=== PATIENT | female | born 1945 | race Caucasian/White ===

== ENCOUNTER 2023-10-03 19:07 | Emergency (ER) | payer MEDICARE, SELFPAY ==
--- NOTE | 2023-10-03 19:08 | ED_ITS ---
<Statement entered by Jamie Danielson MD - 10/03/23 23:08> I was consulted by the RENAN, and we discussed the complexity of the problems being addressed. I approved the treatment and management plan for this patient's care in the emergency department, thus performing a substantive portion of the medical decision making. Patient has previous CVA with baseline residual with no acute neurologic deficits in terms of speech, motor, sensory. She does have slight ptosis and miosis on the right, based on history and physical exam she has not had an acute stroke, Edita syndrome is a consideration and it runs in her family so she will benefit from workup from an outpatient evaluation. Jamie Danielson MD Discharge Plan Disposition Patient Disposition: Home, Self-Care Condition: Good Chief Complaint: Eye Problems Referrals Follow up/Referrals: Mohit Fontanez APRN [Primary Care Provider] - See instructions Activity Restrictions/Add. Instructions Additional Instructions/Restrictions: Please call and schedule either a follow-up appointment or MRI from your PCP in the morning for continued evaluation for miosis and possible Edita syndrome. Please follow-up with ophthalmology for any worsening symptoms or return to ER as needed for your bacterial conjunctivitis. Clinical Impressions Clinical Impression: Bacterial conjunctivitis, Miosis Instructions Patient Instructions: DI for Conjunctivitis Print Language Print Language: Grenadian Discharge ED Provider: Jamie Danielson General Adult HPI <TOMAS Otto - Last Filed: 10/03/23 22:54> General Chief complaint: Eye Problems Stated complaint: right eye pain and burning Time Seen by Provider: 10/03/23 19:08 History of Present Illness HPI narrative: Patient presents for 3 days of right eye pain and burning. Patient has noticed that her right eye has become more painful and has been burning for the last 3 days. Today she states it is causing blurry vision. She denies any headaches fever chills hemoptysis hematochezia melena nausea vomiting diarrhea. Patient does have a history of previous right-sided stroke when she was age 37 however has had no long-term lifelong deficits. Related Data Allergies Allergy/AdvReac Type Severity Reaction Status Date / Time diazepam [From Valium] Allergy Verified 10/03/23 20:02 Sulfa (Sulfonamide Allergy Verified 10/03/23 20:02 Antibiotics) PFS <TOMAS Otto - Last Filed: 10/03/23 22:54> [facility] Disclaimer: The information contained in this section may have been updated after the patient was seen, as this information can be updated by other users. Social History Smoking Status: Unknown if ever smoked alcohol intake: never current occupational status: retired Travel in the last 8 weeks: None <TOMAS Otto - Last Filed: 10/03/23 22:54> ROS Obtained: Yes Systems reviewed as appropriate & no additional complaints except as documented Physical Exam <TOMAS Otto - Last Filed: 10/03/23 22:54> General General appearance: alert and in no apparent distress Eye Eye exam: Present conjunctival redness, discharge and miosis (Right); Absent periorbital swelling or periorbital tenderness Expanded Eye Exam Pupils: Left: reactive, Right: non reactive/fixed and size (3 mm) and Bilateral: regular, round ENT ENT exam: Present normal exam and normal oropharynx Neck Neck exam: Present normal inspection and full ROM Respiratory Respiratory exam: Present normal lung sounds bilaterally Cardiovascular Cardiovascular exam: Present regular rate and normal rhythm Abdominal Exam Abdominal exam: Absent normal bowel sounds Neurological Exam Neurological exam: Present alert, oriented X3, CN II-XII intact and normal gait; Absent motor sensory deficit Medical Decision Making <TOMAS Otto - Last Filed: 10/03/23 22:54> Medical Records Medical records reviewed: Yes I reviewed the patient's medical records. [place] Inquiry Pt receiving controlled substance: No Vital Signs: 10/03/23 19:17 Temperature 98.2 F Temperature Source Oral Pulse Rate [Right Brachial] 85 Respiratory Rate 15 Blood Pressure [Right Arm] 158/77 H Blood Pressure Mean [Right Arm] 104 Blood Pressure Source [Right Arm] Automatic Cuff Blood Pressure Position [Right Arm] Sitting 02 Sat by Pulse Oximetry 100 Oxygen Delivery Method Room Air Lab Data Lab results reviewed: Yes I reviewed the patient's lab results. Lab Results 10/03/23 21:20: WBC 5.9, RBC 4.61, Hgb 13.5, Hct 43.0, MCV 93.3, MCH 29.3, MCHC 31.4 L, RDW 14.7, Plt Count 159, MPV 10.1, Neut % (Auto) 66.8, Lymph % (Auto) 24.9, [place] % (Auto) 5.5, Eos % (Auto) 1.4, Baso % (Auto) 1.3, Neut # (Auto) 4.0, Lymph # (Auto) 1.5, [place] # (Auto) 0.3, Eos # (Auto) 0.1, Baso # (Auto) 0.1, PT 10.9, INR 0.97, APTT 27.4, Sodium 140, Potassium 4.3, Chloride 107, Carbon Dioxide 29, Anion Gap 8.3, BUN 15, Creatinine 0.80, Estimated Creat Clear 64, Estimated GFR 70, Est GFR ( Amer) 84, Glucose 121 H, Calcium 9.1, Total Bilirubin 0.5, AST 39 H, ALT 26, Alkaline Phosphatase 108, Total Protein 8.8 H, Albumin 4.5, Globulin 4.3 H, Albumin/Globulin Ratio 1.0 L, Triglycerides 151 H, Cholesterol 181, LDL Cholesterol Direct 83.80 L, VLDL Cholesterol 30, HDL Cholesterol 46, Cholesterol/HDL Ratio 3.9 H 10/03/23 21:20 10/03/23 21:20 Orders (Tests/Meds): ED MEDICATIONS Generic Name Dose Route Start Last Admin Trade Name Freq PRN Reason Stop Dose Admin Sodium Chloride 10 ml 10/03/23 21:59 10/03/23 22:01 Sodium Chloride 0.9% 10ml Syr (Rad Only) IV 11/02/23 21:58 10 ml NEEDED PRN Administration Maintain IV Site Discontinued Medications Generic Name Dose Route Start Last Admin Trade Name Freq PRN Reason Stop Dose Admin Iopamidol 80 ml 10/03/23 21:59 10/03/23 22:00 Iopamidol-370 (76%);100ml Bottle IV 10/03/23 22:00 80 ml ONCE ONE Administration Sodium Chloride 50 ml 10/03/23 21:59 10/03/23 22:00 0.9 % Sodium Chloride 50 Ml Vial IV 10/03/23 22:00 50 ml ONCE ONE Administration ORDERS Category Date Time Status CT angio head Stat Cat Scan 10/03/23 19:[address] angio neck Stat Cat Scan 10/03/23 19:[address] head/brain wo con Stat Cat Scan 10/03/23 19:48 Completed Activated Partial Thrombo Time Stat Lab 10/03/23 21:20 Completed CBC w/Auto Diff [Complete Blood Count Auto Diff] Stat Lab 10/03/23 21:20 Completed CMP [Comprehensive Metabolic Panel] Stat Lab 10/03/23 21:20 Completed INR [Prothrombin Time INR] Stat Lab 10/03/23 21:20 Completed Lipid Panel Stat Lab 10/03/23 21:20 Completed ECG Request Stat Y 10/03/23 19:48 Ordered Medical Decision Narrative: In summary patient is a 78-year-old female who presents to the emergency department for evaluation of right eye problem. Patient is hemodynamically stable upon arrival, afebrile. Physical exam is remarkable for bulbar and scleral conjunctival erythema and injection as well as slightly purulent discharge. Exam with fluorescein stain and black light reveals no uptake of fluorescein patient has no exophthalmos has no headache no painful extraocular movement testing however I do notice that patient's right pupil is contracted in comparison to the right. Further examination shows that it does not react visibly at all. Patient's pressure shows 14 her visual acuity is 20/50 in the left 20/70 in the right 20/50 in both with corrected vision. Differential diagnosis includes Edita syndrome versus simple conjunctivitis versus residual unequal pupils from previous stroke etc. Initial workup will be conducted with hematologic labs CTA of the head neck and CT of the head without contrast. Initial interventions include crystalloid bolus. Initial workup reviewed by me shows her hematologic labs are nonactionable and my informal interpretation of her CT imaging of her head and neck shows no acute processes.. 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 Patient then related that her mother had 16 brothers and sisters 5 of which to have or had Edita syndrome but not her mother.. Given this patient is referred back to her PCP for further workup of potential Edita syndrome including MRI. Patient was also suggested to follow-up with ophthalmology for recheck of her eye at her earliest convenience. Patient given strict return precautions. Patient is appropriate for discharge with prescription erythromycin ointment given here in the emergency department. <Jamie Danielson MD - Last Filed: 10/03/23 20:17> Vital Signs: 10/03/23 19:17 Temperature 98.2 F Temperature Source Oral Pulse Rate [Right Brachial] 85 Respiratory Rate 15 Blood Pressure [Right Arm] 158/77 H Blood Pressure Mean [Right Arm] 104 Blood Pressure Source [Right Arm] Automatic Cuff Blood Pressure Position [Right Arm] Sitting 02 Sat by Pulse Oximetry 100 Oxygen Delivery Method Room Air Lab Data Lab Results 10/03/23 21:20: WBC 5.9, RBC 4.61, Hgb 13.5, Hct 43.0, MCV 93.3, MCH 29.3, MCHC 31.4 L, RDW 14.7, Plt Count 159, MPV 10.1, Neut % (Auto) 66.8, Lymph % (Auto) 24.9, [place] % (Auto) 5.5, Eos % (Auto) 1.4, Baso % (Auto) 1.3, Neut # (Auto) 4.0, Lymph # (Auto) 1.5, [place] # (Auto) 0.3, Eos # (Auto) 0.1, Baso # (Auto) 0.1, PT 10.9, INR 0.97, APTT 27.4, Sodium 140, Potassium 4.3, Chloride 107, Carbon Dioxide 29, Anion Gap 8.3, BUN 15, Creatinine 0.80, Estimated Creat Clear 64, Estimated GFR 70, Est GFR ( Amer) 84, Glucose 121 H, Calcium 9.1, Total Bilirubin 0.5, AST 39 H, ALT 26, Alkaline Phosphatase 108, Total Protein 8.8 H, Albumin 4.5, Globulin 4.3 H, Albumin/Globulin Ratio 1.0 L, Triglycerides 151 H, Cholesterol 181, LDL Cholesterol Direct 83.80 L, VLDL Cholesterol 30, HDL Cholesterol 46, Cholesterol/HDL Ratio 3.9 H Orders (Tests/Meds): ED MEDICATIONS Generic Name Dose Route Start Last Admin Trade Name Freq PRN Reason Stop Dose Admin Sodium Chloride 10 ml 10/03/23 21:59 10/03/23 22:01 Sodium Chloride 0.9% 10ml Syr (Rad Only) IV 11/02/23 21:58 10 ml NEEDED PRN Administration Maintain IV Site Discontinued Medications Generic Name Dose Route Start Last Admin Trade Name Freq PRN Reason Stop Dose Admin Iopamidol 80 ml 10/03/23 21:59 10/03/23 22:00 Iopamidol-370 (76%);100ml Bottle IV 10/03/23 22:00 80 ml ONCE ONE Administration Sodium Chloride 50 ml 10/03/23 21:59 10/03/23 22:00 0.9 % Sodium Chloride 50 Ml Vial IV 10/03/23 22:00 50 ml ONCE ONE Administration ORDERS Category Date Time Status CT angio head Stat Cat Scan 10/03/23 19:[address] angio neck Stat Cat Scan 10/03/23 19:[address] head/brain wo con Stat Cat Scan 10/03/23 19:48 Completed Activated Partial Thrombo Time Stat Lab 10/03/23 21:20 Completed CBC w/Auto Diff [Complete Blood Count Auto Diff] Stat Lab 10/03/23 21:20 Completed CMP [Comprehensive Metabolic Panel] Stat Lab 10/03/23 21:20 Completed INR [Prothrombin Time INR] Stat Lab 10/03/23 21:20 Completed Lipid Panel Stat Lab 10/03/23 21:20 Completed ECG Request Stat Y 10/03/23 19:48 Ordered ECG Data Tracing #1: Independently interpreted by me rate is 104, rhythm is regular, axis is normal, sinus tachycardia, no ST elevation in anatomical contiguous leads, QTc 4 6 Critical Care <TOMAS Otto - Last Filed: 10/03/23 22:54> Critical Care Time Critical Care Time: No
[2023-10-03 19:17] VITALS: BP 158/77; PULSE 85; RESP 15; TEMP 36.8; O2SAT 100; BMI 33.0
--- NOTE | 2023-10-03 19:32 | PC.NURSE ---
Visual acuity completed, corrected with glasses. Left 20/50 Right 20/70 Both 20/50 Provider notified.
--- NOTE | 2023-10-03 19:36 | PC.NURSE ---
spoke with [facility] paging for ophthalmology
--- NOTE | 2023-10-03 19:40 | PC.NURSE ---
speaking with [facility] at this time.
--- NOTE | 2023-10-03 19:48 | CT_ITS ---
PROCEDURE INFORMATION: Exam: CT Head Without Contrast Exam date and time: 10/03/2023 9:42 PM Age: 78 years old Clinical indication: Weakness, facial; Additional info: Possible stroke TECHNIQUE: Imaging protocol: Computed tomography of the head without contrast. Radiation optimization: All CT scans at this facility use at least one of these dose optimization techniques: automated exposure control; mA and/or kV adjustment per patient size (includes targeted exams where dose is matched to clinical indication); or iterative reconstruction. COMPARISON: CT ANGIO HEAD 10/03/2023 9:42 PM FINDINGS: Brain: Periventricular and subcortical small vessel ischemic changes appear chronic. Mild atrophy associated. No acute hemorrhage, mass effect, midline shift, or extra-axial fluid collection. Cerebral ventricles: No ventriculomegaly. Paranasal sinuses: Visualized sinuses are unremarkable. No fluid levels. Mastoid air cells: Visualized mastoid air cells are well aerated. Bones: Unremarkable. No acute fracture. Soft tissues: Unremarkable. IMPRESSION: No acute intracranial abnormality.
--- NOTE | 2023-10-03 19:48 | CT_ITS ---
PROCEDURE INFORMATION: Exam: CTA Head With Contrast, Arteriography Exam date and time: 10/03/2023 9:42 PM Age: 78 years old Clinical indication: Weakness; Additional info: Possible stroke TECHNIQUE: Imaging protocol: Computed tomographic angiography of the head with contrast. Exam focused on the arteries. 3D rendering (Not supervised by radiologist): MIP and/or 3D reconstructed images were created by the technologist. Radiation optimization: All CT scans at this facility use at least one of these dose optimization techniques: automated exposure control; mA and/or kV adjustment per patient size (includes targeted exams where dose is matched to clinical indication); or iterative reconstruction. Contrast material: ISOUVE 370; Contrast volume: 80 ml; Contrast route: INTRAVENOUS (IV); COMPARISON: CT HEAD/BRAIN WO CON 10/03/2023 9:42 PM FINDINGS: ANTERIOR CIRCULATION: Right internal carotid artery: Intracranial segment is patent with no significant stenosis. No aneurysm. Right middle cerebral artery: No occlusion or significant stenosis. No aneurysm. Right anterior cerebral artery: No occlusion or significant stenosis. No aneurysm. Left internal carotid artery: Intracranial segment is patent with no significant stenosis. No aneurysm. Left middle cerebral artery: No occlusion or significant stenosis. No aneurysm. Left anterior cerebral artery: No occlusion or significant stenosis. No aneurysm. POSTERIOR CIRCULATION: Right vertebral artery: No occlusion or significant stenosis. No aneurysm. Left vertebral artery: No occlusion or significant stenosis. No aneurysm. Basilar artery: No occlusion or significant stenosis. No aneurysm. Right posterior cerebral artery: No occlusion or significant stenosis. No aneurysm. Left posterior cerebral artery: No occlusion or significant stenosis. No aneurysm. Brain: No definite mass, mass effect, or midline shift. Cerebral ventricles: No ventriculomegaly. Bones/joints: Unremarkable. No acute fracture. Soft tissues: Unremarkable. IMPRESSION: No large vessel stenosis or occlusion.
--- NOTE | 2023-10-03 19:48 | CT_ITS ---
PROCEDURE INFORMATION: Exam: CTA Neck With Contrast Exam date and time: 10/03/2023 9:42 PM Age: 78 years old Clinical indication: Weakness; Additional info: Possible stroke TECHNIQUE: Imaging protocol: Computed tomographic angiography of the neck with contrast. Exam focused on the cervical segments of the vasculature. 3D rendering (Not supervised by radiologist): MIP and/or 3D reconstructed images were created by the technologist. Radiation optimization: All CT scans at this facility use at least one of these dose optimization techniques: automated exposure control; mA and/or kV adjustment per patient size (includes targeted exams where dose is matched to clinical indication); or iterative reconstruction. Contrast material: ISOUVE 370; Contrast volume: 80 ml; Contrast route: INTRAVENOUS (IV); COMPARISON: CT ANGIO HEAD 10/03/2023 9:42 PM FINDINGS: Right common carotid artery: No stenosis. No dissection or occlusion. Right internal carotid artery: No stenosis of the extracranial segment. No dissection or occlusion. Right external carotid artery: No occlusion or stenosis of the origin. Left common carotid artery: No stenosis. No dissection or occlusion. Left internal carotid artery: No stenosis of the extracranial segment. No dissection or occlusion. Left external carotid artery: No occlusion or stenosis of the origin. Right vertebral artery: No stenosis. No dissection or occlusion. Left vertebral artery: No stenosis. No dissection or occlusion. Soft tissues: Normal. No significant soft tissue swelling. Bones/joints: No acute fracture. IMPRESSION: No stenosis or occlusion. REFERENCES: NASCET CRITERIA. The degree of stenosis in the cervical segment of the internal carotid artery is based on NASCET criteria. Normal is no stenosis. Mild is less than 50% stenosis. Moderate is 50-69% stenosis. Severe is 70% to 99% stenosis. Total occlusion is no detectable patent lumen.
--- NOTE | 2023-10-03 20:00 | ECG_ITS ---
APPROVED REPORT Exam: Resting ECG HR:104 bpm ECG Measurements Heart Rate 104 AXES SC 191 P 80 QRSd 92 QRS 19 QT 346 T 70 QTc 406 Conclusion SINUS TACHYCARDIA LOW QRS VOLTAGE IN PRECORDIAL LEADS [QRS DEFLECTION < 1.0 mV IN CHEST LEADS] ABNORMAL RHYTHM ECG Electronically signed by : BURTON WELLINGTON, 10/03/2023 23:26:54
--- NOTE | 2023-10-03 21:09 | PC.NURSE ---
attempted to p[lace iv twice with no success ER charge nurse made aware
[2023-10-03 21:28] LABS: Basophils # 0.1 K/mm3 (0-0.2); Basophils % 1.3 % (0.1-2.0); Eosinophils # 0.1 K/mm3 (0.0-0.4); Eosinophils % 1.4 % (0.1-12.0); Hemoglobin 13.5 g/dL (12.2-16.2); Lymphocytes # 1.5 K/mm3 (0.7-4.5); Lymphocytes % 24.9 % (10-50); Mean Corpuscular HGB Conc 31.4 g/dL (31.8-35.4); Mean Corpuscular Hemoglobin 29.3 pg (27.0-31.2); Mean Corpuscular Volume 93.3 fl (81-99); Mean Platelet Volume 10.1 fl (7.4-10.4); Monocytes # 0.3 K/mm3 (0.1-1.0); Monocytes % 5.5 % (1.7-9.3); Neutrophils % 66.8 % (37.0-80.0); Platelet Count 159 K/mm3 (142-424); Red Blood Count 4.61 M/mm3 (4.20-5.40); Red Cell Distribution Width 14.7 % (11.5-17.5); White Blood Count 5.9 K/mm3 (4.8-10.8)
[2023-10-03 21:32] LABS: Albumin Level 4.5 g/dl (3.5-5.0); Chloride 107 mmol/L (98-107); Sodium 140 mmol/L (136-145)
[2023-10-03 21:33] LABS: Potassium 4.3 mmoL/L (3.5-5.1)
[2023-10-03 21:35] LABS: Alanine Aminotransferase 26 U/L (12-78); Anion Gap 8.3 mEq/L (5-15); Aspartate Amino Transferase 39 U/L (14-36); Blood Urea Nitrogen 15 mg/dl (7-17); Carbon Dioxide 29 mmol/L (22.0-30.0); Creatinine Clearance Estimated 64 mL/min (50-200); Estimated Glomerular Filt Rate 70 ml/min (>60); GFR (African American) 84 ML/MIN (>60); Globulin 4.3 g/dL (1.3-3.2); Total Protein,Serum 8.8 g/dl (6.3-8.2)
[2023-10-03 21:36] LABS: Alkaline Phosphatase 108 U/L (38-126); Bilirubin,Total 0.5 mg/dl (0.2-1.3); Calcium 9.1 mg/dl (8.4-10.2); Chol/HDL Ratio 3.9 (1-3.5); Cholesterol 181 mg/dl (140-200); Glucose 121 mg/dl (74-100); HDL Cholesterol 46 mg/dl (40-60); Triglycerides 151 mg/dl (30-150); VLDL Cholesterol 30 mg/dL (0-40)
[2023-10-03 21:38] LABS: Activated Partial Thrombo Time 27.4 seconds (22.8-30.6); INR 0.97 (0.9-1.1); Prothrombin Time 10.9 seconds (10.1-12.5)
[2023-10-03] MEDS: IOPAMIDOL-370 (76%);100ML BOTTLE 80 ML IV (22:00)
[2023-10-03] MEDS: 0.9 % SODIUM CHLORIDE 50 ML VIAL IV (22:00)
[2023-10-03] MEDS: SODIUM CHLORIDE 0.9% 10ML SYR (RAD ONLY) 10 ML IV (22:01)
[2023-10-03 23:07] VITALS: BP 148/79; PULSE 80; RESP 20; TEMP 36.8; O2SAT 98
== END 2023-10-03 23:09 | disposition home or self-care (01) ==
PROVIDERS: Physician Assistant; Emergency Provider Emergency Medicine; PCP Nurse Practitioner Family
DX: H10.33 Unspecified acute conjunctivitis, bilateral (principal); H53.8 Other visual disturbances; H57.03 Miosis; R00.0 Tachycardia, unspecified
CPT/HCPCS: 70450; 70496; 70498; 80053; 80061; 85025; 85610; 85730; 93005; 99285; Q9967

== ENCOUNTER 2024-06-16 22:27 | Emergency (ER) | payer MEDICARE, OTHER, SELFPAY ==
[2024-06-16 22:47] VITALS: BP 159/84; PULSE 95; RESP 16; TEMP 36.8; O2SAT 94; BMI 37.5
--- NOTE | 2024-06-16 22:49 | ED_ITS ---
Discharge Plan Disposition Patient Disposition: Home, Self-Care Condition: Good Prescriptions Prescriptions: New cephalexin 500 mg capsule 500 mg PO QID 7 Days Qty: 28 0RF Referrals Follow up/Referrals: Mohit Fontanez APRN [Primary Care Provider] - See instructions Activity Restrictions/Add. Instructions Additional Instructions/Restrictions: Please take antibiotics as prescribed for treatment of possible cellulitis. Please follow-up with your primary care provider. Please return to the emergency department if you develop any new or worsening symptoms or become concerned for your health. Clinical Impressions Clinical Impression: Cellulitis, Leg pain, right Print Language Print Language: Azeri Discharge ED Provider: Leonardo Crawley General Adult HPI <Sudha Leung DO - Last Filed: 06/16/24 23:28> General Chief complaint: Chest Pain Stated complaint: Red streaks from right foot with warm knot R leg Time Seen by Provider: 06/16/24 22:44 History of Present Illness HPI narrative: This patient is a 78-year-old female with history of diabetes, CAD, prior CVA on Plavix presented to the emergency department for evaluation with concern for redness, pain, and streaking on her right lateral leg. She denies any known trauma or injuries. No fevers. She does note that she has had some chest heaviness and shortness of breath over the last week. Related Data Previous Rx's ?Medication ?Instructions ?Recorded cephalexin 500 mg capsule 500 mg PO QID 7 days #28 caps 06/17/24 Allergies Allergy/AdvReac Type Severity Reaction Status Date / Time diazepam (From Valium) Allergy Verified 10/03/23 20:02 Sulfa (Sulfonamide Allergy Verified 10/03/23 20:02 Antibiotics) [facility] <Sudha Leung DO - Last Filed: 06/16/24 23:28> [facility] Disclaimer: The information contained in this section may have been updated after the patient was seen, as this information can be updated by other users. Social History Smoking Status: Never smoker alcohol intake: never current occupational status: retired Travel in the last 8 weeks: None Have you lived/traveled outside [place] in past 30 days?: No Contact w/someone who lives/traveled outside [place] past 30 days?: No Exposure to someone with infectious disease in past 14 days?: No Do you have a fever (greater than 100.4 F or 38 C)?: No Have you tested positive for COVID-19: No Exposed to someone with COVID-19 in past 14 days?: No Do you have a sore throat?: No Do you have a cough?: No Do you have any weakness?: No Do you have any diarrhea?: No Are you experiencing any unusual bleeding?: No Do you have any muscle aches/pain?: No Do you have any abdominal pain?: No Are you experiencing loss of taste or smell?: No <Sudha Leung DO - Last Filed: 06/16/24 23:28> ROS Obtained: Yes All systems reviewed & no additional complaints except as documented Physical Exam <Sudha Leung DO - Last Filed: 06/16/24 23:28> General General appearance: alert and in no apparent distress Head Head exam: atraumatic and normocephalic Eye Eye exam: Present normal appearance, PERRL and EOMI ENT ENT exam: Present normal exam, normal oropharynx, mucous membranes moist and normal external ear exam Neck Neck exam: Present normal inspection, full ROM and trachea midline; Absent tenderness Chest Chest inspection: Present normal inspection and symmetric chest wall rise; Absent tenderness Respiratory Respiratory exam: Present normal lung sounds bilaterally; Absent respiratory distress, wheezes, stridor or accessory muscle use Cardiovascular Cardiovascular exam: Present regular rate and normal rhythm Abdominal Exam Abdominal exam: Present soft; Absent distention, tenderness or guarding Extremities Exam Extremities exam: Present full ROM, tenderness, normal capillary refill, edema and other (Tenderness to palpation, redness, and swelling of the right lateral lower leg with redness extending into the foot. Firm palpable area of induration on the lateral aspect of the right lower leg. No open wounds. Neurovascularly intact distally.) Back Exam Back exam: Present normal inspection and full ROM; Absent tenderness Neurological Exam Neurological exam: Present alert, oriented X3, CN II-XII intact and normal gait; Absent motor sensory deficit Psychiatric Psychiatric exam: Present normal affect and normal mood Skin Skin exam: Present warm and dry Medical Decision Making <uSdha Leung DO - Last Filed: 06/16/24 23:28> Medical Records Medical records reviewed: Yes I reviewed the patient's medical records. Screening: Per USPSTF and CDC recommendations, given the prevalence of disease in our region, it is our hospital?s policy to screen for HIV and viral Hepatitis for all patients aged 18 and over and those with ongoing risk factors. [place] Inquiry Pt receiving controlled substance: No Vital Signs: 06/16/24 22:47 06/16/24 23:00 06/16/24 23:30 Temperature 98.2 F Temperature Source Oral Pulse Rate 98 H 88 Pulse Rate [Left] 95 H Respiratory Rate 16 Blood Pressure 106/54 L 101/62 L Blood Pressure [Right Arm] 159/84 H Blood Pressure Mean [Right Arm] 109 Blood Pressure Source Blood Pressure Position 02 Sat by Pulse Oximetry 94 L 95 96 Oxygen Delivery Method Room Air 06/17/24 00:18 Temperature 97.9 F Temperature Source Oral Pulse Rate 74 Pulse Rate [Left] Respiratory Rate 16 Blood Pressure 109/72 L Blood Pressure [Right Arm] Blood Pressure Mean [Right Arm] Blood Pressure Source Automatic Cuff Blood Pressure Position Supine 02 Sat by Pulse Oximetry Oxygen Delivery Method Room Air Lab Data Lab results reviewed: Yes I reviewed the patient's lab results. Lab Results 06/16/24 22:43: WBC 6.3, RBC 4.50, Hgb 13.2, Hct 39.9, MCV 88.7, MCH 29.3, MCHC 33.1, RDW 14.0, Plt Count 154, MPV 11.5 H, Neut % (Auto) 56.9, Lymph % (Auto) 32.0, [place] % (Auto) 8.3, Eos % (Auto) 1.4, Baso % (Auto) 1.1, Neut # (Auto) 3.6, Lymph # (Auto) 2.0, [place] # (Auto) 0.5, Eos # (Auto) 0.1, Baso # (Auto) 0.1, ESR 29, D-Dimer 0.67 H, Sodium 142, Potassium 4.3, Chloride 109 H, Carbon Dioxide 26, Anion Gap 11.3, BUN 14, Creatinine 0.80, Estimated Creat Clear 73, Estimated GFR 70, Est GFR ( Amer) 84, Glucose 83, Lactate 1.2, Calcium 9.3, Total Bilirubin 0.4, AST 33, ALT 20, Alkaline Phosphatase 91, Troponin I < 0.01, C- Reactive Protein 1.0, NT-Pro-B Natriuret Pep 157, Total Protein 7.9, Albumin 4.2, Globulin 3.7 H, Albumin/Globulin Ratio 1.1, HCV Ab CECILIA w/Rflx PCR Qn Negative, HIV Ag/Ab Combo Qual Negative 06/16/24 22:43 06/16/24 22:43 Orders (Tests/Meds): ED MEDICATIONS Discontinued Medications Generic Name Dose Route Start Last Admin Trade Name Freq PRN Reason Stop Dose Admin Cephalexin HCl 500 mg 06/17/24 00:10 06/17/24 00:12 Cephalexin 500mg Capsule PO 06/17/24 00:11 500 mg ONCE ONE Administration ORDERS Category Date Time Status CXR --portable [XR chest portable] Stat Exams 06/16/24 22:50 Completed POCUS Point of Care (ER Only) Stat Exams 06/16/24 22:49 Completed BNP [NT Pro Brain Natriuretic Pep.] Stat Lab 06/16/24 22:43 Completed CRP [C-Reactive Protein] Stat Lab 06/16/24 22:43 Completed Complete Blood Count Auto Diff Stat Lab 06/16/24 22:43 Completed Comprehensive Metabolic Panel Stat Lab 06/16/24 22:43 Completed D-Dimer Stat Lab 06/16/24 22:43 Completed ESR [Erythrocyte Sedimentation Rate] Stat Lab 06/16/24 22:43 Completed HIV Combo Stat Lab 06/16/24 22:43 Completed Hepatitis C Ab Qual. W/ RFX Stat Lab 06/16/24 22:43 Completed Lactic Acid Stat Lab 06/16/24 22:43 Completed Trop I [Troponin I] Stat Lab 06/16/24 22:43 Completed Troponin I Q3H Lab 06/17/24 02:00 Ordered Troponin I Q3H Lab 06/17/24 05:00 Ordered ECG Data Tracing #1: I reviewed this ECG and interpreted as documented below: Normal sinus rhythm with a ventricular rate of [address] changes concerning for ischemia. Normal intervals ECG initial impression date: 06/16/24 ECG initial impression time: 23:01 Medical Decision Narrative: In summary, this patient is a 78-year-old female presenting to the Emergency Department for evaluation of redness, warmth, tenderness palpation of the right lower leg. Differential diagnoses considered include but are not limited to cellulitis, DVT, abscess, musculoskeletal strain/sprain. Ruling out the most morbid conditions drove assessment. It should be noted patient's history includes diabetes, extensive cardiovascular history which may or may not be at goal therapy. This complicates all aspects of care by increasing patient's risk for morbidity. On exam, the patient is sitting upright in no acute distress. She is nontoxic- appearing with reassuring vital signs on cardiac telemetry. She is afebrile. She has no hypoxia or increased work of breathing. Cardiopulmonary exam is reassuring. She does have redness, warmth, tenderness to palpation of the right lower leg with a palpable area of induration on the right side of the lower leg. No known trauma. Workup included CBC, CMP, ESR, CRP, lactic acid, D-dimer, bedside ultrasound. Bedside ultrasound demonstrates some cobblestoning of the soft tissues concerning for cellulitis/inflammatory process, but I do not see any large abscess or focal fluid collection. No gas. She also does not have blood clot on my interpretation of bedside imaging with a negative D-dimer per age-adjusted dimer, which affectively is 0.76. Initial labs are reassuring with reassuring CBC, reassuring chemistry, however troponin and chest x-ray pending. EKG obtained is reassuring. Patient care signed out to the oncoming provider, Dr. Crawley, pending remaining cardiac workup <Leonardo Crawley MD - Last Filed: 06/17/24 00:33> Vital Signs: 06/16/24 22:47 06/16/24 23:00 06/16/24 23:30 Temperature 98.2 F Temperature Source Oral Pulse Rate 98 H 88 Pulse Rate [Left] 95 H Respiratory Rate 16 Blood Pressure 106/54 L 101/62 L Blood Pressure [Right Arm] 159/84 H Blood Pressure Mean [Right Arm] 109 Blood Pressure Source Blood Pressure Position 02 Sat by Pulse Oximetry 94 L 95 96 Oxygen Delivery Method Room Air 06/17/24 00:18 Temperature 97.9 F Temperature Source Oral Pulse Rate 74 Pulse Rate [Left] Respiratory Rate 16 Blood Pressure 109/72 L Blood Pressure [Right Arm] Blood Pressure Mean [Right Arm] Blood Pressure Source Automatic Cuff Blood Pressure Position Supine 02 Sat by Pulse Oximetry Oxygen Delivery Method Room Air Lab Data Lab Results 06/16/24 22:43: WBC 6.3, RBC 4.50, Hgb 13.2, Hct 39.9, MCV 88.7, MCH 29.3, MCHC 33.1, RDW 14.0, Plt Count 154, MPV 11.5 H, Neut % (Auto) 56.9, Lymph % (Auto) 32.0, [place] % (Auto) 8.3, Eos % (Auto) 1.4, Baso % (Auto) 1.1, Neut # (Auto) 3.6, Lymph # (Auto) 2.0, [place] # (Auto) 0.5, Eos # (Auto) 0.1, Baso # (Auto) 0.1, ESR 29, D-Dimer 0.67 H, Sodium 142, Potassium 4.3, Chloride 109 H, Carbon Dioxide 26, Anion Gap 11.3, BUN 14, Creatinine 0.80, Estimated Creat Clear 73, Estimated GFR 70, Est GFR ( Amer) 84, Glucose 83, Lactate 1.2, Calcium 9.3, Total Bilirubin 0.4, AST 33, ALT 20, Alkaline Phosphatase 91, Troponin I < 0.01, C- Reactive Protein 1.0, NT-Pro-B Natriuret Pep 157, Total Protein 7.9, Albumin 4.2, Globulin 3.7 H, Albumin/Globulin Ratio 1.1, HCV Ab CECILIA w/Rflx PCR Qn Negative, HIV Ag/Ab Combo Qual Negative Orders (Tests/Meds): ED MEDICATIONS Discontinued Medications Generic Name Dose Route Start Last Admin Trade Name Freq PRN Reason Stop Dose Admin Cephalexin HCl 500 mg 06/17/24 00:10 06/17/24 00:12 Cephalexin 500mg Capsule PO 06/17/24 00:11 500 mg ONCE ONE Administration ORDERS Category Date Time Status CXR --portable [XR chest portable] Stat Exams 06/16/24 22:50 Completed POCUS Point of Care (ER Only) Stat Exams 06/16/24 22:49 Completed BNP [NT Pro Brain Natriuretic Pep.] Stat Lab 06/16/24 22:43 Completed CRP [C-Reactive Protein] Stat Lab 06/16/24 22:43 Completed Complete Blood Count Auto Diff Stat Lab 06/16/24 22:43 Completed Comprehensive Metabolic Panel Stat Lab 06/16/24 22:43 Completed D-Dimer Stat Lab 06/16/24 22:43 Completed ESR [Erythrocyte Sedimentation Rate] Stat Lab 06/16/24 22:43 Completed HIV Combo Stat Lab 06/16/24 22:43 Completed Hepatitis C Ab Qual. W/ RFX Stat Lab 06/16/24 22:43 Completed Lactic Acid Stat Lab 06/16/24 22:43 Completed Trop I [Troponin I] Stat Lab 06/16/24 22:43 Completed Troponin I Q3H Lab 06/17/24 02:00 Ordered Troponin I Q3H Lab 06/17/24 05:00 Ordered Medical Decision Narrative: In summary, this patient is a 78-year-old female presenting to the Emergency Department for evaluation of redness, warmth, tenderness palpation of the right lower leg. Differential diagnoses considered include but are not limited to cellulitis, DVT, abscess, musculoskeletal strain/sprain. Ruling out the most morbid conditions drove assessment. It should be noted patient's history includes diabetes, extensive cardiovascular history which may or may not be at goal therapy. This complicates all aspects of care by increasing patient's risk for morbidity. On exam, the patient is sitting upright in no acute distress. She is nontoxic- appearing with reassuring vital signs on cardiac telemetry. She is afebrile. She has no hypoxia or increased work of breathing. Cardiopulmonary exam is reassuring. She does have redness, warmth, tenderness to palpation of the right lower leg with a palpable area of induration on the right side of the lower leg. No known trauma. Workup included CBC, CMP, ESR, CRP, lactic acid, D-dimer, bedside ultrasound. Bedside ultrasound demonstrates some cobblestoning of the soft tissues concerning for cellulitis/inflammatory process, but I do not see any large abscess or focal fluid collection. No gas. She also does not have blood clot on my interpretation of bedside imaging with a negative D-dimer per age-adjusted dimer, which affectively is 0.76. Initial labs are reassuring with reassuring CBC, reassuring chemistry, however troponin and chest x-ray pending. EKG obtained is reassuring. Patient care signed out to the oncoming provider, Dr. Crawley, pending remaining cardiac workup. Misbah WALDEN: I assumed care of the patient at the time of handoff from the prior provider. On reassessment patient's initial troponin is negative. Given she has had several days of symptoms, the plan per Dr. Leung was for a single troponin. Chest x-ray does not show any focal opacity on my independent interpretation. Interactive discussion was had with patient regarding her presentation and workup. She was discharged with a prescription for Keflex for possible cellulitis and encouraged to follow-up with PCP for reassessment. Procedures <Sudha Leung DO - Last Filed: 06/16/24 23:28> Limited Ultrasound Findings:: Limited soft tissue ultrasound Indication: Soft tissue pain and swelling Identified structures: Location: Right lower leg Findings: Cellulitis without abscess, no DVT noted Impression: Cellulitis of soft tissue Images were saved to permanent archive The study was technically adequate Soft Tissue CPT Codes: CPT Neck: 21574-76 CPT Upper extremity: 20345-69 CPT Axilla: 20919-09 CPT Chest wall: 66589-41 CPT Breast: 22146-34-RF/LT (complete), 22493-62-ST/LT (limited), CPT Upper Back: 05844-84 CPT Lower Back: 38060-52 CPT Abdominal Wall: 98044-10 CPT Pelvic Wall: 94272-03 CPT Lower Extremity: 58974-40 CPT Other Soft Tissue: 37959-85 This study was performed by me, and I personally interpreted all images/videos. Based on my clinical judgement, these images were adequate and did not necessitate further imaging. Critical Care <Sudha Leung, - Last Filed: 06/16/24 23:28> Critical Care Time Critical Care Time: No
--- NOTE | 2024-06-16 22:50 | XR_ITS ---
PROCEDURE INFORMATION: Exam: XR Chest Exam date and time: 06/16/2024 11:03 PM Age: 78 years old Clinical indication: Shortness of breath and other: Pressure; Additional info: Chest pressure/heaviness TECHNIQUE: Imaging protocol: Radiologic exam of the chest. Views: 1 view. Total images: 1 COMPARISON: CT ANGIO NECK 10/03/2023 9:42 PM FINDINGS: Lungs: Nonspecific accentuation of bronchovascular markings. No airspace consolidation or overt vascular congestion. No pulmonary edema. Pleural spaces: Unremarkable. No pleural effusion. No pneumothorax. Heart/Mediastinum: Prominent cardiac silhouette, likely magnified by portable AP technique. No cardiomegaly. No mediastinal widening. Bones/joints: Mild osteopenia. Mild degenerative changes thoracic spine. Soft tissues: Soft tissue attenuation artifact at the lung bases. IMPRESSION: 1. Nonspecific mild accentuation of bronchovascular markings may reflect baseline status versus component of volume overload or pneumonitis. 2. No airspace consolidation or vascular congestion.
[2024-06-16 22:53] LABS: Basophils # 0.1 K/mm3 (0-0.2); Basophils % 1.1 % (0.1-2.0); Eosinophils # 0.1 Kmm3 (0.0-0.4); Eosinophils % 1.4 % (0.1-12.0); Hematocrit 39.9 % (37.0-47.0); Hemoglobin 13.2 g/dL (12.2-16.2); Mean Corpuscular HGB Conc 33.1 g/dL (31.8-35.4); Mean Corpuscular Hemoglobin 29.3 pg (27.0-31.2); Mean Corpuscular Volume 88.7 fl (81-99); Mean Platelet Volume 11.5 fl (7.4-10.4); Monocytes # 0.5 K/mm3 (0.1-1.0); Monocytes % 8.3 % (1.7-9.3); Neutrophils # 3.6 K/mm3 (1.8-7.8); Neutrophils % 56.9 % (37.0-80.0); Nucleated Red Blood Cells # 0 10^3/uL; Nucleated Red Blood Cells % 0 %; Platelet Count 154 K/mm3 (142-424); Red Cell Distribution Width-SD 45.1 fL; White Blood Count 6.3 K/mm3 (4.8-10.8)
[2024-06-16 23:00] VITALS: BP 106/54; PULSE 98; O2SAT 95
--- NOTE | 2024-06-16 23:00 | ECG_ITS ---
APPROVED REPORT Exam: Resting ECG HR:95 bpm ECG Measurements Heart Rate 95 AXES FL 181 P 89 QRSd 71 QRS 57 QT 344 T 76 QTc 396 Conclusion SINUS RHYTHM LOW QRS VOLTAGE IN PRECORDIAL LEADS [QRS DEFLECTION < 1.0 mV IN CHEST LEADS] BORDERLINE ECG UNCONFIRMED REPORT Electronically signed by : MICHELLE FAN, 06/19/2024 03:47:19
[2024-06-16 23:03] LABS: Alanine Aminotransferase 20 U/L (12-78); Albumin Level 4.2 g/dl (3.5-5.0); Albumin/Globulin Ratio 1.1 (1.1-1.8); Alkaline Phosphatase 91 U/L (38-126); Anion Gap 11.3 mEq/L (5-15); Aspartate Amino Transferase 33 U/L (14-36); Bilirubin,Total 0.4 mg/dl (0.2-1.3); Blood Urea Nitrogen 14 mg/dl (7-17); Calcium 9.3 mg/dl (8.4-10.2); Carbon Dioxide 26 mmol/L (22.0-30.0); Chloride 109 mmol/L (98-107); Creatinine Clearance Estimated 73 mL/min (50-200); Estimated Glomerular Filt Rate 70 ml/min (>60); GFR (African American) 84 ML/MIN (>60); Globulin 3.7 g/dL (1.3-3.2); Glucose 83 mg/dl (74-100); Potassium 4.3 mmoL/L (3.5-5.1); Sodium 142 mmol/L (136-145); Total Protein,Serum 7.9 g/dl (6.3-8.2)
[2024-06-16 23:04] LABS: Lactic Acid 1.2 mmol/L (0.7-2.1)
[2024-06-16 23:08] LABS: D-Dimer 0.67 ug/mL (0.0-0.5)
[2024-06-16 23:18] LABS: NT Pro Brain Natriuretic Pep. 157 pg/mL (0-450)
[2024-06-16 23:27] LABS: Troponin I < 0.01 ng/ml (0.00-0.034)
[2024-06-16 23:30] VITALS: BP 101/62; PULSE 88; O2SAT 96
[2024-06-16 23:48] LABS: Erythrocyte Sedimentation Rate 29 mm/hr (0-30)
[2024-06-16 23:56] LABS: HIV Combo NEGATIVE (Negative)
[2024-06-17 00:04] LABS: Hepatitis C Ab Qual. W/ RFX NEGATIVE (Negative)
[2024-06-17] MEDS: cephALEXin 500MG CAPSULE 500 MG PO (00:12)
[2024-06-17 00:18] VITALS: BP 109/72; PULSE 74; RESP 16; TEMP 36.6; O2SAT 98
== END 2024-06-17 00:20 | disposition home or self-care (01) ==
PROVIDERS: Emergency Medicine; Emergency Provider Emergency Medicine; PCP Nurse Practitioner Family
DX: L03.115 Cellulitis of right lower limb (principal); M79.604 Pain in right leg; Z11.59 Encounter for screening for other viral diseases; Z11.4 Encounter for screening for human immunodeficiency virus [HIV]
CPT/HCPCS: 71045; 80053; 83605; 83880; 84484; 85025; 85378; 85651; 86140; 86803; 87389; 93005; 99284

== ENCOUNTER 2024-10-19 09:13 | Emergency (ER) | payer MEDICARE, OTHER, SELFPAY ==
--- OUTSIDE RECORDS SUMMARY | 2024-08-30 14:30 | XMS_ITS | Encounter Summary ---
Author Organization [facility] Address [address] [place] [address] Care Team Providers Care Mechanic Foreman Name Role Phone Mohit Fontanez AVIATION SURVIVAL TECHNICIAN Primary Care Provider + Reason for Visit * Reason Comments Follow-up Diabetes Encounter Details Date Type Department Care Team (Late st Contact Info) Description 08/30/2024 2:30 PM EDT Office Visit [facility] [address] [phone] Mohit Fontanez, ROBERT 120 [facility] [address] [place] [id number] Type 2 diabetes mellitus with diabetic polyneuropathy, without long-term current use of insulin (Primary Dx); Medication management; Degeneration of intervertebral disc of lumbar region with discogenic back pain and lower extremity pain; Belching; Acquired hypothyroidism; Obstructive sleep apnea on CPAP; Chronic heart failure with preserved ejection fraction; Stress at home Social History Tobacco Use Types Packs/Day Years Used Date Smoking Tobacco: Never Passive Smoke Exposure: Past Smokeless Tobacco: Never Alcohol Use Standard Drinks/Week Comments Never 0 (1 standard drink = 0.6 oz pur e alcohol) [facility] Utilities Answer Date Recorded In the past 12 months has [employer], gas, oil, or water [employer] threatened to shut off services in your home? No 08/11/2023 AUDIT-C Answer Date Recorded Q1: How often do you have a drink containing alcohol? Never 08/10/2023 Q2: How many drinks containi ng alcohol do you have on a typical day when you are drinking? Patient does not drink Q3: How often do you have si x or more drinks on one occasion? Never 08/10/2023 PHQ-2 Answer Date Recorded Retired PHQ-9: Brief Depression Severity Measure Score 0 01/27/2023 Exercise Vital Sign Answer Date Recorde d On average, how many days pe r week do you engage in moderate to strenuous exercise (like a brisk walk)? 0 days 08/11/2023 On average, how many minutes do you engage in exercise at this level? 0 min 08/11/2023 Hunger Vital Sign Answer Date Recorded Within the past 12 months, y ou worried that your food would run out before you got the money to buy more. Never true 08/11/19 24 Within the past 12 months, t he food you bought just didn't last and you didn't have money to get more. Never true 08/11/2023 PRAPARE - Transportation Answer Date Re corded In the past 12 months, has l ack of transportation kept you from medical appointments or from getting medications? No 07/23 In the past 12 months, has l ack of transportation kept you from meetings, work, or from getting things needed for daily living? No 08/11/2023 Abuse Screen Answer Date Recorded Feels Unsafe at Home or Work/School no 09/27/2023 Feels Threatened by Someone no 0806/2023 Does Anyone Try to Keep You From Having Contact with Others or Doing Things Outside Your Home? no 09/27/2023 Physical Signs of Abuse Present no 09/27/2023 Housing Stability Answer Date Recorded Current Living Arrangements home 07/23 Potentially Unsafe Housing Conditions none 08/11/2023 Disabilities Answer Date Recorded Difficulty Concentrating, Remembering or Making Decisions no 08/10/2023 Difficulty Managing Errands Independently no 08/10/2023 Education Answer Date Recorded Help with school or training? Not on file Preferred Language Colombian 08/11/2023 PHQ-2 Answer Date Recorded Patient Health Questionnaire-2 Score 0 03/03/2024 Comments No Sex and Gender Information Value Date Recorded Sex Assigned at Not on file Legal Sex Female 3:34 PM EDT Gender Identity Not on file Sexual Orientation Not on file documented as of this encounter Last Filed Vital Signs Vital Sign Reading Time Taken Comments Blood Pressure 124/70 08/30/2024 2:45 PM EDT Pulse 78 08/30/2024 2:45 PM EDT Temperature 36.2 C (97.2 F) 08/30/2024 2:45 PM EDT Respiratory Rate - - Oxygen Saturation 99% 08/30/2024 2:45 PM EDT Inhaled Oxygen Concentration - - Weight 93.6 kg (206 lb 6.4 oz) 08/30/2024 2:45 P M EDT Height - - Body Mass Index 37.74 03/15/2024 2:59 PM EST documented in this encounter Progress Notes * Mohit Fontanez, AVIATION SURVIVAL TECHNICIAN - 08/30/2024 2:30 PM EDT Chief Complaint Patient presents with Follow-up Diabetes HPI Radha Kemp is a 79 y.o. female presents for follow-up on diabetes. Her last A1c was below 6. She states she had to miss her last cardiology appt due to lack of transportation. She has moved out of her daughter's home and is living with her son. Starting to have difficulty swallowing again. She had surgery last year for achalasia. She states she doesn't think the surgery can be done again. She gets hiccups easily with eating and drinking. The following portions of the patient's history were reviewed and updated as appropriate: allergies, current medications, past family history, past medical history, past social history, past surgicalhistory, and problem list. Subjective Review of Systems HENT: Positive for trouble swallowing. Musculoskeletal: Positive for arthralgias and back pain. Psychiatric/Behavioral: Positive for stress. Objective Visit Vitals BP 124/70 (BP Location: Left arm, Patient Position: Sitting) Pulse 78 Temp 97.2 ??F (36.2 ??C) Wt 93.6 kg (206 lb 6.4 oz) SpO2 99% BMI 37.74 kg/m?? Physical Exam Vitals and nursing note reviewed. HENT: Head: Normocephalic. Eyes: Pupils: Pupils are equal, round, and reactive to light. Cardiovascular: Rate and Rhythm: Normal rate and regular rhythm. Pulses: Normal pulses. Heart sounds: Normal heart sounds. No murmur heard. Pulmonary: Effort: Pulmonary effort is normal. No respiratory distress. Breath sounds: Normal breath sounds. Abdominal: Comments: Frequently belching Musculoskeletal: Comments: Gait slowed Skin: General: Skin is warm and dry. Capillary Refill: Capillary refill takes less than 2 seconds. Neurological: General: No focal deficit present. Mental Status: She is alert and oriented to person, place, and time. Gait: Gait is intact. Psychiatric: Attention and Perception: Attention normal. Mood and Affect: Mood normal. Behavior: Behavior normal. Procedures Results for orders placed or performed in visit on 08/30/24 POC Glycosylated Hemoglobin (Hb A1C) Collection Time: 08/30/24 3:17 PM Specimen: Blood Result Value Ref Range Hemoglobin A1C 5.1 4.5 - 5.7 % Lot Number [id number] Expiration Date 04/19/2026 Assessment and Plan Diagnoses and all orders for this visit: 1. Type 2 diabetes mellitus with diabetic polyneuropathy, without long-term current use of insulin (Primary) - POC Glycosylated Hemoglobin (Hb A1C) - Microalbumin / Creatinine Urine Ratio - Urine, Clean Catch; Future - CBC & Differential - Comprehensive Metabolic Panel 2. Medication management - Urine Drug Screen - Urine, Clean Catch; Future 3. Degeneration of intervertebral disc of lumbar region with discogenic back pain and lower extremity pain 4. Belching 5. Acquired hypothyroidism - TSH Rfx On Abnormal To Free T4 6. Obstructive sleep apnea on CPAP 7. Chronic heart failure with preserved ejection fraction 8. Stress at home A1c 5.1, well controlled on Januvia Check labs Update IZZY Francisco approp Cont Hydrocodone for chronic pain, very effective Compliant with Cpap Highly recommend she reschedule her f/u with cardio Return in about 4 months (around 12/31/2024) for Medicare Wellness. Mohit Fontanez APRN documented in this encounter Plan of Treatment Upcoming Encounters Date Type Department Care Team (Late st Contact Info) Description 01/02/2025 2:00 PM EST Office Visit [facility] [address] [phone] Mohit Fontanez APRN 120 [facility] [address] [place] [id number] documented as of this encounter Procedures Procedure Name Priority Date/Time Associated Diagnosis Comments TSH RFX ON ABNORMAL TO FREE T4 Routine 08/30/2024 3:33 PM EDT Acquired hypothyroidism CBC WITH AUTO DIFFERENTIAL Routine 08/30/2024 3:33 PM EDT Type 2 diabetes mellitus with diabetic polyneuropathy, without long-term current use of insulin CBC AND DIFFERENTIAL Routine 08/30/2024 3:33 PM EDT Type 2 diabetes mellitus with diabetic polyneuropathy, without long-term current use of insulin COMPREHENSIVE METABOLIC PANEL Routine 08/30/2024 3:33 PM EDT Type 2 diabetes mellitus with diabetic polyneuropathy, without long-term current use of insulin POCT GLYCOSYLATED HEMOGLOBIN (HGB A1C) Routine 08/30/2024 3:17 PM EDT Type 2 diabetes mellitus with diabetic polyneuropathy, without long-term current use of insulin documented in this encounter Results * (ABNORMAL) CBC Auto Differential (08/30/2024 3:33 PM EDT) WBC 6.25 3.40 - 10.80 10*3/mm3 08/30/2024 10:58 PM EDT [facility] RBC 4.42 3.77 - 5.28 10*6/mm3 08/30/2024 10:58 PM EDT [facility] Hemoglobin 12.8 12.0 - 15.9 g/dL 08/30/2024 10:58 PM EDT [facility] Hematocrit 39.0 34.0 - 46.6 % 08/30/2024 10:58 PM EDT [facility] MCV 88.2 79.0 - 97.0 fL 08/30/2024 10:58 PM EDT [facility] MCH 29.0 26.6 - 33.0 pg 08/30/2024 10:58 PM EDT [facility] MCHC 32.8 31.5 - 35.7 g/dL 08/30/2024 10:58 PM [facility] RDW 13.0 12.3 - 15.4 % 08/30/2024 10:58 PM [facility] RDW-SD 41.7 37.0 - 54.0 fl 08/30/2024 10:58 PM [facility] MPV 12.4(H) 6.0 - 12.0 fL 08/30/2024 10:58 PM [facility] Platelets 135(L) 140 - 450 10*3/mm3 08/30/2024 10:58 PM [facility] Neutrophil % 61.5 42.7 - 76.0 % 08/30/2024 10:58 PM [facility] Lymphocyte % 27.8 19.6 - 45.3 % 08/30/2024 10:58 PM [facility] Monocyte % 8.3 5.0 - 12.0 % 08/30/2024 10:58 PM [facility] Eosinophil % 1.3 0.3 - 6.2 % 08/30/2024 10:58 PM [facility] Basophil % 0.8 0.0 - 1.5 % 08/30/2024 10:58 PM [facility] Immature Grans % 0.3 0.0 - 0.5 % 08/30/2024 10:58 PM [facility] Neutrophils, Absolute 3.84 1.70 - 7.00 10*3/mm3 08/30/2024 10:58 PM [facility] Lymphocytes, Absolute 1.74 0.70 - 3.10 10*3/mm3 08/30/2024 10:58 PM [facility] Monocytes, Absolute 0.52 0.10 - 0.90 10*3/mm3 08/30/2024 10:58 PM [facility] Eosinophils, Absolute 0.08 0.00 - 0.40 10*3/mm3 08/30/2024 10:58 PM [facility] Basophils, Absolute 0.05 0.00 - 0.20 10*3/mm3 08/30/2024 10:58 PM EDT [facility] Immature Grans, Absolute 0.02 0.00 - 0.05 10*3/mm3 08/30/2024 10:58 PM EDT [facility] nRBC 0.0 0.0 - 0.2 /100 WBC 08/30/2024 10:58 PM EDT [facility] Blood Structure of right upper limb / Unknown Venipuncture / Unknown 08/30/2024 3:33 PM EDT 08/30/2024 3:33 PM EDT [facility] LAB BLOOD ORDERABLES Fin al Result Performing Organization Address [facility]/ZIP Co de Phone Number [facility]
[address] [place] [address], * TSH Rfx On Abnormal To Free T4 (08/30/2024 3:33 PM EDT) TSH 0.883 0.270 - 4.200 uIU/mL 08/31/2024 12:04 AM EDT [facility] Blood Structure of right upper limb / Unknown Venipuncture / Unknown 08/30/2024 3:33 PM EDT 08/30/2024 3:33 PM EDT [facility] LAB BLOOD ORDERABLES Fin al Result Performing Organization Address City/[facility]/ZIP Co de Phone Number [facility]
[address] [place] [address], * Comprehensive Metabolic Panel (08/30/2024 3:33 PM EDT) Glucose 72 65 - 99 mg/dL 08/31/2024 12:00 AM EDT [facility] BUN 10.0 8.0 - 23.0 mg/dL 08/31/2024 12:00 AM [facility] Creatinine 0.84 0.57 - 1.00 mg/dL 08/31/2024 12:00 AM [facility] Sodium 141 136 - 145 mmol/L 08/31/2024 12:00 AM [facility] Potassium 3.7 3.5 - 5.2 mmol/L 08/31/2024 12:00 AM [facility] Chloride 106 98 - 107 mmol/L 08/31/2024 12:00 AM [facility] CO2 23.0 22.0 - 29.0 mmol/L 08/31/2024 12:00 AM [facility] Calcium 9.2 8.6 - 10.5 mg/dL 08/31/2024 12:00 AM [facility] Total Protein 7.7 6.0 - 8.5 g/dL 08/31/2024 12:00 AM [facility] Albumin 4.0 3.5 - 5.2 g/dL 08/31/2024 12:00 AM [facility] ALT (SGPT) 13 1 - 33 U/L 08/31/2024 12:00 AM [facility] AST (SGOT) 28 1 - 32 U/L 08/31/2024 12:00 AM [facility] Alkaline Phosphatase 76 39 - 117 U/L 08/31/2024 12:00 AM [facility] Total Bilirubin 0.3 0.0 - 1.2 mg/dL 08/31/2024 12:00 AM [facility] Globulin 3.7 gm/dL 08/31/2024 12:00 AM [facility] A/G Ratio 1.1 g/dL 08/31/2024 12:00 AM [facility] BUN/Creatinine Ratio 11.9 7.0 - 25.0 08/31/2024 12:00 AM [facility] Anion Gap 12.0 5.0 - 15.0 mmol/L 08/31/2024 12:00 AM EDT [facility] eGFR 71.7 >60.0 mL/min/1.7 3 08/31/2024 12:00 AM EDT [facility] Blood Structure of right upper limb / Unknown Venipuncture / Unknown 08/30/2024 3:33 PM EDT 08/30/2024 3:33 PM EDT [facility] - 08/31/2024 12:00 AM EDT GFR Categories in Chronic Kidney Disease (CKD) GFR Category GFR (mL/min/1.73) Interpretation G1 90 or greater Normal or high (1) G2 60-89 Mild decrease (1) G3a 45-59 Mild to moderate decrease G3b 30-44 Moderate to severe decrease G4 15-29 Severe decrease G5 14 or less Kidney failure (1)In the absence of evidence of kidney disease, neither GFR category G1 or G2 fulfill the criteria for CKD. eGFR calculation 2020 CKD-EPI creatinine equation, which does not include race as a factor Mohit Fontanez APRN LAB BLOOD ORDERABLES Fin al Result [facility]
[address] [place] [address], * Urine Drug Screen - Urine, Clean Catch (08/30/2024 3:33 PM EDT) THC, Screen, Urine Negative Negative 2024 7:49 PM EDT [facility] Phencyclidine (PCP), Urine Negative Negative 08/30/2024 7:49 PM EDT [facility] Cocaine Screen, Urine Negative Negative 08/30/2024 7:49 PM EDT [facility] Methamphetamine, Ur Negative Negative 08/30 7:49 PM EDT [facility] Opiate Screen Negative Negative 08/30/2024 7:49 PM EDT [facility] Amphetamine Screen, Urine Negative Negative 08/30/2024 7:49 PM EDT [facility] Benzodiazepine Screen, Urine Negative Negative 08/30/2024 7:49 PM EDT [facility] Tricyclic Antidepressants Screen Negative Negative 08/30/2024 7:49 PM EDT [facility] Methadone Screen, Urine Negative Negative 08/30/2024 7:49 PM EDT [facility] Barbiturates Screen, Urine Negative Negative 08/30/2024 7:49 PM EDT [facility] Oxycodone Screen, Urine Negative Negative 08/30/2024 7:49 PM EDT [facility] Buprenorphine, Screen, Urine Negative Negative 08/30/2024 7:49 PM EDT [facility] Urine Urine specimen obtained by clean catch procedure / Unknown Collection / Unknown 08/30/2024 3:33 PM EDT 08/30/2024 3:33 PM EDT [facility] - 08/30/2024 7:49 PM EDT Cutoff For Drugs Screened: Amphetamines 500 ng/ml Barbiturates 200 ng/ml Benzodiazepines 150 ng/ml Cocaine 150 ng/ml Methadone 200 ng/ml Opiates 100 ng/ml Phencyclidine 25 ng/ml THC 50 ng/ml Methamphetamine 500 ng/ml Tricyclic Antidepressants 300 ng/ml Oxycodone 100 ng/ml Buprenorphine 10 ng/ml The normal value for all drugs tested is negative. This report includes unconfirmed screening results, with the cutoff values listed, to be used for medical treatment purposes only. Unconfirmed results must not be used for non-medical purposes such as employment or legal testing. Clinical consideration should be applied to any drug of abuse test, particularly when unconfirmed results are used. Mohit Fontanez AVIATION SURVIVAL TECHNICIAN URINE ORDERABLES Final R esult [facility]
[address] [place] [address], * Microalbumin / Creatinine Urine Ratio - Urine, Clean Catch (08/30/2024 3:33 PM EDT) Microalbumin/C reatinine Ratio 08/30/2024 11:50 PM EDT [facility] Comment:Unable to calculate Creatinine, Urine 106.2 mg/dL 08/30/2024 11:50 PM EDT [facility] Microalbumin, Urine <1.2 mg/dL 08/30/2024 11:50 PM EDT [facility] Urine Urine specimen obtained by clean catch procedure / Unknown Collection / Unknown 08/30/2024 3:33 PM EDT 08/30/2024 3:33 PM EDT Mohit Fontanez AVIATION SURVIVAL TECHNICIAN URINE ORDERABLES Final R esult [facility]
[address] [place] [address], [place] [phone] * POC Glycosylated Hemoglobin (Hb A1C) (08/30/2024 3:17 PM EDT) Hemoglobin A1C 5.1 4.5 - 5.7 % [facility] Lot Number [id number] [facility] Expiration Date 04/19/2026 [facility] Blood 08/30/2024 3:17 PM EDT Mohit Fontanez APRN POINT OF CARE TEST ORDER TATI Final Result Performing Organization Address City/[facility]/ZIP Co de Phone Number [facility]
[address] [place] [address], [place] [phone] documented in this encounter Visit Diagnoses Diagnosis Type 2 diabetes mellitus with diabetic polyneuropathy, without long-term current use of insulin- Primary Medication management Degeneration of intervertebral disc of lumbar region with discogenic back pain and lower extremity pain Belching Flatulence, eructation, and gas pain Acquired hypothyroidism Unspecified hypothyroidism Obstructive sleep apnea on CPAP Chronic heart failure with preserved ejection fraction Stress at home documented in this encounter Care Teams Mechanic Foreman Relationship Specialty Start Date End Date Mohit Fontanez APRN [address] [place], [place] [address] [facility] [address] [place] [address] PCP - General Family Medicine 11/27/22 documented as of this encounter
--- OUTSIDE RECORDS SUMMARY | 2024-08-30 15:35 | XMS_ITS | Encounter Summary ---
Author Organization [facility] Address [address] [place] [address] Care Team Providers Care Cadence Specialists Name Role Phone Mohit Fontanez ROBERT Primary Care Provider + Encounter Details Date Type Department Care Team (Late st Contact Info) Description 08/30/2024 3:35 PM EDT Lab [facility] [address] [place] [id number] Type 2 diabetes mellitus with diabetic polyneuropathy, without long-term current use of insulin; Medication management Social History Tobacco Use Types Packs/Day Years Used Date Smoking Tobacco: Never Passive Smoke Exposure: Past Smokeless Tobacco: Never Alcohol Use Standard Drinks/Week Comments Never 0 (1 standard drink = 0.6 oz pur e alcohol) [facility] Utilities Answer Date Recorded In the past 12 months has [employer], gas, oil, or water company threatened to shut off services in your [...] no 09/27/2023 Feels Threatened by Someone no 06/2023 Does Anyone Try to Keep You From [...] or training? Not on file Preferred Language Mauritanian 08/11/2023 PHQ-2 Answer Date Recorded Patient Health Questionnaire-2 Score 0 03/03/2024 Comments No Sex and Gender Information Value Date Recorded Sex Assigned at Not on file Legal Sex Female 3:34 PM EDT Gender Identity Not on file Sexual Orientation Not on file documented as of this encounter Plan of Treatment Upcoming Encounters Date Type Department Care Team (Late st Contact Info) Description 01/02/2025 2:00 PM EST Office Visit [facility] [address] [place] [address] Mohit Fontanez APRN [address] [facility] [address] [place] [address] documented as of this encounter Procedures Procedure Name Priority Date/Time Associated Diagnosis Comments MICROALBUMIN / CREATININE URINE RATIO Routine 08/30/2024 3:33 PM EDT Type 2 diabetes mellitus with diabetic polyneuropathy, without long-term current use of insulin URINE DRUG SCREEN Routine 08/30/2024 3:3 3 PM EDT Medication management FENTANYL, URINE Routine 08/30/2024 3:33 PM EDT Medication management documented in this encounter Results * Fentanyl, Urine - Urine, Clean Catch (08/30/2024 3:33 PM EDT) Fentanyl, Urine Negative Negative 08/30/2024 8:00 PM EDT [facility] Urine Urine specimen obtained by clean catch procedure / Unknown Collection / Unknown 08/30/2024 3:33 PM EDT 08/30/2024 3:33 PM EDT [facility] - 08/30/2024 8:00 PM EDT Negative Threshold: Fentanyl 5 ng/mL The normal value for the drug tested is negative. This report includes final unconfirmed screening results to be used for medical treatment purposes only. Unconfirmed results must not be used for non-medical purposes such as employment or legal testing. Clinical consideration should be applied to any drug of abuse test, particularly when unconfirmed results are used. Mohit Fontanez APRN URINE ORDERABLES Final R esult [facility]
[address] [place] [address], * Urine Drug Screen - Urine, Clean Catch (08/30/2024 3:33 PM EDT) THC, Screen, Urine Negative Negative 2024 7:49 PM EDT [facility] Phencyclidine (PCP), Urine Negative Negative 08/30/2024 7:49 PM EDT [facility] Cocaine Screen, Urine Negative Negative 08/30/2024 7:49 PM EDT [facility] Methamphetamine, Ur Negative Negative 08/30 7:49 PM EDT [facility] Opiate Screen Negative Negative 08/30/2024 7:49 PM EDT [facility] Amphetamine Screen, Urine Negative Negative 08/30/2024 7:49 PM EDT [facility] Benzodiazepine Screen, Urine Negative Negative 08/30/2024 7:49 PM EDT [facility] Tricyclic Antidepressants Screen Negative Negative 08/30/2024 7:49 PM EDT [facility] Methadone Screen, Urine Negative Negative 08/30/2024 7:49 PM EDT [facility] Barbiturates Screen, Urine Negative Negative 08/30/2024 7:49 PM EDT [facility] Oxycodone Screen, Urine Negative Negative 08/30/2024 7:49 PM EDT [facility] Buprenorphine, Screen, Urine Negative Negative 08/30/2024 7:49 PM EDT [facility] Urine Urine specimen obtained by clean catch procedure / Unknown Collection / Unknown 08/30/2024 3:33 PM EDT 08/30/2024 3:33 PM EDT [facility] - 08/30/2024 7:49 PM EDT Cutoff [...] particularly when unconfirmed results are used. Mohit Rajni Fontanez CAGE SUPERVISOR URINE ORDERABLES Final R esult Performing Organization Address [facility]/ZIP Co de Phone Number [facility]
[address] [place] [address], * Microalbumin / Creatinine Urine Ratio - Urine, Clean Catch (08/30/2024 3:33 PM EDT) Microalbumin/C reatinine Ratio 08/30/2024 11:50 PM EDT [facility] Comment:Unable to calculate Creatinine, Urine 106.2 mg/dL 08/30/2024 11:50 PM EDT [facility] Microalbumin, Urine <1.2 mg/dL 08/30/2024 11:50 PM EDT [facility] Urine Urine specimen obtained by clean catch procedure / Unknown Collection / Unknown 08/30/2024 3:33 PM EDT 08/30/2024 3:33 PM EDT Mohit Fontanez CAGE SUPERVISOR URINE ORDERABLES Final R esult Performing Organization Address City/[facility] Co de Phone Number [facility]
[address] [place] [address], documented in this encounter Visit Diagnoses Diagnosis Type 2 diabetes mellitus with diabetic polyneuropathy, without long-term current use of insulin Medication management documented in this encounter Care Teams Cadence Specialists Relationship Specialty Start Date End Date Mohit Fontanez APRN [address] [place] [address] [address] [place] [address] PCP - General Family Medicine 11/27/22 documented as of this encounter
[2024-10-19] VITALS (12 sets, daily range): BP systolic 117–165; BP diastolic 59–98; PULSE 83–108; RESP 18–24; TEMP 36.6–36.8; O2SAT 95–99; BMI 34.0
--- NOTE | 2024-10-19 09:42 | XR_ITS ---
FINAL REPORT CLINICAL HISTORY: Dyspnea, productive cough FINDINGS: PA and lateral views of the chest are obtained. There is no prior exam for comparison. The cardiac and mediastinal silhouettes are within normal limits. There is pulmonary vascular congestion. There is no pleural effusion, pneumothorax, or acute osseous abnormality. IMPRESSION: Pulmonary vascular congestion. Reviewed, Interpreted and Dictated by Nini Eastman MD Transcribed by Dulce Grimaldo Authenticated and [facility]
--- NOTE | 2024-10-19 09:43 | HMH.EDGENADL ---
Discharge Plan Disposition Patient Disposition: Home, Self-Care Condition: Good Prescriptions Prescriptions: New albuterol sulfate [Ventolin HFA] 90 mcg/actuation HFA aerosol inhaler 1 inh inhalation Q6H PRN (Reason: shortness of breath or wheezing) Qty: 8.5 0RF No Action losartan 50 mg Tablet 50 mg PO DAILY furosemide 40 mg Tablet 40 mg PO DAILY glipizide 10 mg Tablet 10 mg PO DAILY nifedipine 30 mg Tablet Extended Release 30 mg PO DAILY clopidogrel 75 mg Tablet 75 mg PO DAILY allopurinol 100 mg Tablet 100 mg PO DAILY simvastatin 40 mg Tablet 40 mg PO DAILY carvedilol 3.125 mg Tablet 3.125 mg PO DAILY amitriptyline 10 mg Tablet 10 mg PO DAILY levothyroxine 50 mcg Tablet 50 mcg PO DAILY sitagliptin 100 mg Tablet 100 mg PO DAILY Referrals Follow up/Referrals: Mohit Fontanez APRN [Primary Care Provider, Medical] - See instructions Activity Restrictions/Add. Instructions Additional Instructions/Restrictions: Please use the albuterol inhaler provided every 6 hours as needed for the cough and shortness of breath. If you have any new or worsening symptoms please return. Clinical Impressions Clinical Impression: Rhinovirus, Cough due to bronchospasm Print Language Print Language: Occitan Discharge ED Provider: Darryl Scott Adult HPI General Chief complaint: Upper Respiratory Infection Stated complaint: SOA, Covid EXP Time Seen by Provider: 10/19/24 09:16 Mode of Arrival: Ambulatory Source of Information: Patient Description of Symptoms (Recalled from ER Triage Doc. by RN): Patient stated around 5 days ago she developed a cough, symptoms have progressively gotten worse. Stated late last night into this morning she developed shortness of breath, but denies any other symptoms. History of Present Illness HPI narrative: This is a 79-year-old female patient, with past medical history of hypertension, hyperlipidemia, hypothyroidism, diabetes, artery disease, and congestive heart failure, who is presenting to the emergency department today for evaluation of shortness of breath. Patient states that she has multiple grandchildren that live in the house with her. Earlier this week they were diagnosed with COVID. She states that over the last 5 days she has developed rhinorrhea, congestion, and sore throat. Today she woke up feeling dyspneic as well as heaviness in her chest. She does not describe this as overt pain, and states that this sensation is nonradiating and nonexertional in nature. She is experiencing a cough that is productive of phlegm. Related Data Home Medications ?Medication ?Instructions ?Recorded ?Confirmed allopurinol 100 mg tablet 100 mg PO DAILY 10/19/24 10/19/24 amitriptyline 10 mg tablet 10 mg PO DAILY 10/19/24 10/19/24 carvedilol 3.125 mg tablet 3.125 mg PO DAILY 10/19/24 10/19/24 clopidogrel 75 mg tablet 75 mg PO DAILY 10/19/24 10/19/24 furosemide 40 mg tablet 40 mg PO DAILY 10/19/24 10/19/24 glipizide 10 mg tablet 10 mg PO DAILY 10/19/24 10/19/24 levothyroxine 50 mcg tablet 50 mcg PO DAILY 10/19/24 10/19/24 losartan 50 mg tablet 50 mg PO DAILY 10/19/24 10/19/24 nifedipine 30 mg tablet,extended 30 mg PO DAILY 10/19/24 10/19/24 release simvastatin 40 mg tablet 40 mg PO DAILY 10/19/24 10/19/24 sitagliptin 100 mg tablet 100 mg PO DAILY 10/19/24 10/19/24 Previous Rx's ?Medication ?Instructions ?Recorded albuterol sulfate 90 mcg/actuation 1 inh inhalation Q6H PRN shortness 10/19/24 aerosol inhaler (Ventolin HFA) of breath or wheezing #8.5 grams Allergies Allergy/AdvReac Type Severity Reaction Status Date / Time diazepam (From Valium) Allergy Verified 10/03/23 20:02 Sulfa (Sulfonamide Allergy Verified 10/03/23 20:02 Antibiotics) [facility] Disclaimer: The information contained in this section may have been updated after the patient was seen, as this information can be updated by other users. Social History Smoking Status: Never smoker alcohol intake: never current occupational status: retired Travel in the last 8 weeks?: None Have you lived/traveled outside US in past 30 days?: No Contact w/someone who lives/traveled outside US past 30 days?: No Exposure to someone with infectious disease in past 14 days?: Yes Do you have a fever (greater than 100.4 F or 38 C)?: No Have you tested positive for COVID-19?: No Exposed to someone with COVID-19 in past 14 days?: Yes Do you have a sore throat?: No Do you have a cough?: Yes Do you have any weakness?: Yes Do you have any diarrhea?: No Are you experiencing any unusual bleeding?: No Do you have any muscle aches/pain?: No Do you have any abdominal pain?: No Are you experiencing loss of taste or smell?: No ROS Obtained: Yes Systems reviewed as appropriate & no additional complaints except as documented Physical Exam General General appearance: other (See MDM) Respiratory Respiratory exam: Present other (See MDM) Cardiovascular Cardiovascular exam: Present other (See MDM) Neurological Exam Neurological exam: Present other (See MDM) Medical Decision Making Medical Records Medical records reviewed: Yes I reviewed the patient's medical records. Screening: Per USPSTF and CDC recommendations, given the prevalence of disease in our region, it is our hospital?s policy to screen for HIV and viral Hepatitis for all patients aged 18 and over and those with ongoing risk factors. Nolan Inquiry Pt receiving controlled substance: No Nolan was queried for this patient: No Vital Signs: 10/19/24 09:20 10/19/24 09:24 10/19/24 09:25 Temperature 98.2 F Temperature Source Oral Pulse Rate 104 H 88 Pulse Rate [Radial] 108 H Respiratory Rate 20 Blood Pressure 165/98 H 150/78 H Blood Pressure [Right Arm] 165/98 H Blood Pressure Mean [Right Arm] 120 Blood Pressure Source Blood Pressure Source [Right Arm] Automatic Cuff Blood Pressure Position 02 Sat by Pulse Oximetry 95 96 98 Oxygen Delivery Method Room Air 10/19/24 09:30 10/19/24 09:31 10/19/24 09:35 Temperature Temperature Source Pulse Rate 93 H 92 H 92 H Pulse Rate [Radial] Respiratory Rate 18 Blood Pressure 141/86 H 137/80 140/74 Blood Pressure [Right Arm] Blood Pressure Mean [Right Arm] Blood Pressure Source Automatic Cuff Blood Pressure Source [Right Arm] Blood Pressure Position Sitting 02 Sat by Pulse Oximetry 97 99 98 Oxygen Delivery Method Room Air 10/19/24 09:40 10/19/24 09:45 10/19/24 09:50 Temperature Temperature Source Pulse Rate 108 H 93 H 88 Pulse Rate [Radial] Respiratory Rate Blood Pressure 137/80 141/75 H 125/69 Blood Pressure [Right Arm] Blood Pressure Mean [Right Arm] Blood Pressure Source Blood Pressure Source [Right Arm] Blood Pressure Position 02 Sat by Pulse Oximetry 99 98 99 Oxygen Delivery Method 10/19/24 09:52 10/19/24 09:55 Temperature Temperature Source Pulse Rate 97 H Pulse Rate [Radial] Respiratory Rate 24 Blood Pressure 134/72 Blood Pressure [Right Arm] Blood Pressure Mean [Right Arm] Blood Pressure Source Blood Pressure Source [Right Arm] Blood Pressure Position 02 Sat by Pulse Oximetry 99 99 Oxygen Delivery Method Room Air Lab Data Lab Results 10/19/24 09:22: SARS-CoV-2 (PCR) Not detected, Influenza Type A (PCR) Not detected, Influenza Type B (PCR) Not detected, RSV (PCR) Not detected, Rhinovirus (PCR) Detected A 10/19/24 10:05: WBC 5.4, RBC 4.17 L, Hgb 12.1 L, Hct 36.0 L, MCV 86.3, MCH 29.0, MCHC 33.6, RDW 13.3, Plt Count 107 L, MPV 11.6 H, Neut % (Auto) 69.8, Lymph % (Auto) 22.2, Travis % (Auto) 5.4, Eos % (Auto) 1.3, Baso % (Auto) 0.9, Neut # (Auto) 3.8, Lymph # (Auto) 1.2, Travis # (Auto) 0.3, Eos # (Auto) 0.1, Baso # (Auto) 0.1, Sodium 140, Potassium 3.7, Chloride 109 H, Carbon Dioxide 26, Anion Gap 8.7, BUN 12, Creatinine 0.70, Estimated Creat Clear 65, Estimated GFR 81, Est GFR ( Amer) 98, Glucose 131 H, Calcium 8.8, Total Bilirubin 0.4, AST 40 H, ALT 24, Alkaline Phosphatase 78, Troponin I < 0.01, NT-Pro-B Natriuret Pep 742 H, Total Protein 7.7, Albumin 4.0, Globulin 3.7 H, Albumin/Globulin Ratio 1.1 10/19/24 10:05 10/19/24 10:05 Orders (Tests/Meds): ED MEDICATIONS Discontinued Medications Generic Name Dose Route Start Last Admin Trade Name Freq PRN Reason Stop Dose Admin Albuterol/Ipratropium 9 ml 10/19/24 09:42 10/19/24 09:48 Ipratropium/Albuterol 3 Ml Neb IH 10/19/24 09:43 9 ml ONCE ONE Administration ORDERS Category Date Time Status CXR 2 view (NOT portable) [XR chest 2V] Stat Exams 10/19/24 09:42 Completed BNP [NT Pro Brain Natriuretic Pep.] Stat Lab 10/19/24 10:05 Completed CBC w/Auto Diff [Complete Blood Count Auto Diff] Stat Lab 10/19/24 10:05 Completed CMP [Comprehensive Metabolic Panel] Stat Lab 10/19/24 10:05 Completed Mini Respiratory Panel Stat Lab 10/19/24 09:22 Completed Troponin I Q3H Lab 10/19/24 12:45 Ordered Troponin I Q3H Lab 10/19/24 15:45 Ordered Troponin I Stat Lab 10/19/24 10:05 Completed Medical Decision Narrative: In summary, this is a 79-year-old female patient who is presenting with 5 days of rhinorrhea, congestion, and sore throat in the setting of her grandchildren being diagnosed with COVID. She is now experiencing cough that is productive of phlegm as well as shortness of breath. Comorbidities include hypertension, hyperlipidemia, diabetes, CAD, and congestive heart failure. She is on antiplatelet therapy with clopidogrel. On initial evaluation of the patient they were resting comfortably in no acute distress and nontoxic in appearance. They are hemodynamically stable, saturating well room air, and are neurologically intact. On physical examination of the patient her heart and lungs are clear to auscultation bilaterally. She does have a bronchospastic cough noted on exam. She is appropriately alert and interactive. Abdomen is soft and nontender to palpation. She has no asymmetric lower extremity erythema or edema. Differential diagnosis includes bronchospastic cough, reactive airway disease, bronchitis, pneumonia, pleurisy, ACS/PA, electrolyte derangement, acute kidney injury, congestive heart failure activation, among others. Workup was initiated with hematologic labs as well as an EKG and a chest x-ray. Initial interventions have included 3 DuoNebs. We will avoid steroids at this time as the patient is diabetic and is uncomfortable with steroids unless absolutely necessary. Labs were personally interpreted by me and demonstrate no actionable abnormality. She has no leukocytosis. No clinically significant anemia. No actionable electrolyte derangement or evidence of acute kidney injury. Chest x-ray was personally interpreted by me and demonstrates no lobar consolidation or pleural effusion. The patient's mini respiratory panel did result positive for rhinovirus. I do feel that this adequately explains her symptoms. On repeat reassessment after providing DuoNeb she does feel that her breathing has improved. I also feel that there is improvement in her bronchospastic cough. I have recommended discharge with an albuterol inhaler for the bronchospastic cough. Patient knowledges understanding. I have given return precautions in the event she experiences new or worsening symptoms. At this time all questions have been answered all parties are agreeable with the decision to discharge home Critical Care Critical Care Time Critical Care Time: No
[2024-10-19 09:45] LABS: Coronavirus 19, PCR Not Detected (NotDetected); Influenza A, PCR Not Detected (NotDetected); Influenza B, PCR Not Detected (NotDetected)
[2024-10-19] MEDS: IPRATROPIUM/ALBUTEROL 3 ML NEB 9 ML IH (09:48)
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
--- OUTSIDE RECORDS SUMMARY | 2024-10-19 09:57 | XMS_ITS | Encounter Summary ---
Author Organization [facility] Address [address] [place] [address] Care Team Providers Care Pit Slagman Name Role Phone Mohit Fontanez RN ENTEROSTOMAL Primary Care Provider + Reason for Visit * Reason Onset Date Comments Med Refill 09/19/2024 Encounter Details Date Type Department Care Team (Late st Contact Info) Description 09/19/2024 Refill [facility] [address] [facility] [address] Mohit Fontanez APRN 120 [facility] [address] [place], [place] [id number] Degenerative disc disease, lumbar Social History Tobacco Use Types Packs/Day Years Used Date Smoking Tobacco: Never Passive Smoke Exposure: Past Smokeless Tobacco: Never Alcohol Use Standard Drinks/Week Comments Never 0 (1 standard drink = 0.6 oz pur e alcohol) [facility] Utilities Answer Date Recorded In the past 12 months has [employer], gas, oil, or water [employer] threatened to shut off services in your [...] or training? Not on file Preferred Language Salvadorean 08/11/2023 PHQ-2 Answer Date Recorded Patient Health Questionnaire-2 Score 0 03/03/2024 Comments No Sex and Gender Information Value Date Recorded Sex Assigned at Not on file Legal Sex Female 3:34 PM EDT Gender Identity Not on file Sexual Orientation Not on file documented as of this encounter Miscellaneous Notes * Telephone Encounter - MotleyHeather RegSched Rep - 09/19/2024 11:30 AM EDT Caller: Radha Kemp [place] Relationship: Self Best call back number:[phone] Requested Prescriptions: Requested Prescriptions Pending Prescriptions Disp Refills HYDROcodone-acetaminophen (NORCO) 7.5-325 MG per tablet 90 tablet 0 Sig: Take 1 tablet by mouth Every 8 (Eight) Hours As Needed for Severe Pain. Pharmacy where request should be sent: [facility] [place] - [place], [place] - [address] [facility] - [phone] [facility] [phone] FX Last office visit with prescribing clinician: 08/30/2024 Last telemedicine visit with prescribing clinician: Visit date not found Next office visit with prescribing clinician: 01/02/2025 Additional details provided by patient:2 DAYS OF MEDICATION ON HAND Does the patient have less than a 3 day supply: [x] Yes [] No Would you like a call back once the refill request has been completed: [] Yes [] No If the office needs to give you a call back, can they leave a voicemail: [] Yes [] No [address] 09/19/24 11:31 EDT documented in this encounter Plan of Treatment Upcoming Encounters Date Type Department Care Team (Late st Contact Info) Description 01/02/2025 2:00 PM EST Office Visit [facility] 120 [facility] [address] [place] [address] Mohit Fontanez APRN 120 [facility] [address] [place] [address] documented as of this encounter Visit Diagnoses Diagnosis Degenerative disc disease, lumbar documented in this encounter Care Teams Pit Slagman Relationship Specialty Start Date End Date Mohit Fontanez APRN [address] [facility] [address] [place] [address] PCP - General Family Medicine 11/27/22 documented as of this encounter
--- OUTSIDE RECORDS SUMMARY | 2024-10-19 09:57 | XMS_ITS | Encounter Summary ---
Author Organization [facility] [place] Address [address] [place] [address] Care Team Providers Care Customer Service Advisor Name Role Phone Mohit Fontanez [employer] Primary Care Provider + Encounter Details Date Type Department Care Team (Late st Contact Info) Description 09/01/2024 Results Follow-Up [facility] [address] [facility] [address] [place] [address] Mohit Fontanez APRN [address] [facility] [address] [place] [address] Social History Tobacco Use Types Packs/Day Years Used Date Smoking Tobacco: Never Passive Smoke Exposure: Past Smokeless Tobacco: Never Alcohol Use Standard Drinks/Week Comments Never 0 (1 standard drink = 0.6 oz pur e alcohol) [facility] Utilities Answer Date Recorded In the past 12 months has [employer], oil, or water [employer] threatened to shut off services in your [...] or training? Not on file Preferred Language Puerto Rican 08/11/2023 PHQ-2 Answer Date Recorded Patient Health [...] Description 01/02/2025 2:00 PM EST Office Visit [facility] [address] [address] Mohit Fontanez, ROBERT [address] [facility] [address] [place] [address] documented as of this encounter Visit Diagnoses Not on filedocumented in this encounter Care Teams Customer Service Advisor Relationship Specialty Start Date End Date Mohit Fontanez APRN [address] [facility] [address] [place] [address] PCP - General Family Medicine 11/27/22 documented as of this encounter
--- OUTSIDE RECORDS SUMMARY | 2024-10-19 09:57 | XMS_ITS | Patient Health Record ---
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 Name Role Phone Wei Arita Primary Care Provider [phone] ALLERGIES Allergen (clinical drug ingredient) Drug/Non Drug Allergy documented on EMR Reaction Allergy Type Onset Date Status diazepam Valium throat swelling/hives Drug Allergy Active Sulfa throat swelling/hives Drug Allergy Active RESULTS Component Value Reference Range Notes CBC, Automated Diff Reviewed date:11/17/2023 10:21:40 AM Interpretation: Performing Lab: Notes/Report: PANEL NAME CBC WITH AUTO DIFF CBC W/ZULLY TELET, AUTOMATED WBC 6.0 4.8-10.8 th/cmm RBC 4.17 4.00-5.40 m/cmm HGB 12.0 12.0-16.0 g/dl HCT 37.2 36.0-48.0 % MCV 89 80-98 fl MCH 28.8 27.0-31.0 pg MCHC 32 32-36 g/dl RDW 13.8 11.5-14.5 % PLT 148 150-450 th/cmm MPV 11.0 7.4-10.4 fL GR% 58.2 43.0-80.0 % LY% 30.5 13.0-43.0 % MO% 8.4 0.0-12.0 % EOS% 1.5 0.0-8.0 % BAS% 1.2 0.0-2.0 % GR# 3.5 2.2-8.0 th/cmm LY# 1.8 0.7-4.3 th/cmm MO# 0.5 0.0-1.1 th/cmm EOS# 0.09 0.00-0.80 th/cmm BAS# 0.07 0.00-0.20 th/cmm MAN DIFF NOT REQ SMEAR SCAN NOT REQ CMP Comprehensive Metabolic Profile Reviewed date:11/17/2023 10:21:50 AM Interpretation: Performing Lab: Notes/Report: PANEL NAME METABOLIC PANEL (COMPREHENSIVE) METABOLIC PANEL COMPREHENSIVE SODIUM 141 136-145 mmol/L POTASSIUM 3.7 3.5-5.1 mmol/L CHLORIDE 108 98-107 mmol/L CO2 28 21-32 mmol/L ANION GAP 9 5-15 GLUCOSE 106 74-106 mg/dl BUN 16 7-18 mg/dl CREATININE 1.0 0.6-1.3 mg/dl B/C RATIO 16 6-20 AGE 78 GFR 57 GFR-AA 93 GOT (AST) 19 15-37 U/L GPT (ALT) 18 14-63 U/L T. BILIRUBIN 0.40 0.20-1.20 mg/dl ALK PHOS (R) 86 46-116 U/L TOTAL PROTEIN 7.6 5.7-8.4 mg/dl ALBUMIN 3.1 3.2-4.8 g/dL GLOBULIN 4.5 2.0-3.5 g/dl A/G RATIO 0.7 1.1-2.2 CALCIUM 8.8 8.4-10.2 mg/dl Calcium(cor) 9.5 8.4-10.2 mg/dl \BLDo\ GFR INTERPRETATION: AA = Stage Description GFR \BLDx\ At Risk factors for kidney disease (e.g., diabetes, More than 90 increased high blood pressure, family history,older age, risk ethnic group) 1 Kidney damage (protein in the urine) and normal GFR More than 90 2 Kidney damage and mild decrease in GFR 60 to 89 3 Moderate decrease in GFR 30 to 59 4 Severe decrease in GFR 15 to 29 5 Kidney failure (dialysis or kidney transplant Less than 15 needed) NOTE: GFR is valid only for adults age 18-70 years of age. PRO NT-BNP Reviewed date:11/17/2023 10:21:45 AM Interpretation: Performing Lab: Notes/Report: BNP 50 5-100 pg/ml BNP INTERPRETATION: -BNP results less than or equal to 100 pg/ml are compliance representative of normal values in patients without CHF. -BNP results greater than 100 pg/ml are considered abnormal and suggestive of patients with CHF. -BNP results of >5000 pg/ml are considered very high values for BNP and exceed the upper limits of the test. -Higher BNP concentrations measured in the first 72 hous after an acute coronary syndrome (ACS) are associated with an increased risk of , myocardial infarction, and CHF both at 30 days and at 10 months after presentation than patients whose BNP was below 80 pg/ml. BNP measurements within the first 72 hours after the onset of symptoms provide useful predictive information to aid in the risk stratification of patients with ACS. CHEST 1 VIEW Reviewed date:11/17/2023 10:21:43 AM Interpretation: Performing Lab: Notes/Report: [address] [address] ---------NAME--------- NUMBER SEX AGE ADMIT DISC. XRAY# F/C TYPE MARIO Castro [id number] F 78 11/14/23 VB2 E.R. DATE OF : 1945 M/R# [id number] PH#: [phone] [id number] LOCATION: TRANSCRIBED: 11/14/23 17:52 CHEST 1 VIEW [id number] COMPLETED:11/14/23 17:09 ELD [id number] {REASON FOR CHEST: COUGH PHYSICIAN: NAOMI ARITA S R A D I O L O G Y R E P O R T VIEWS:Single portable view of chest INDICATION: Cough COMPARISON: CXR: 03/10/2015 FINDINGS: - lines/tubes: None - cardiac: Borderline size - mediastinum: Contour within normal limits. - lungs: No evidence of a focal air space process, pulmonary interstitial edema, nodule(s)/mass. - pleura: No evidence of fluid. - osseous: Unremarkable for age. IMPRESSION: Borderline cardiomegaly. Electronically signed by: Juliocesar Bloom MD 11/14/2023 05:52 PM CDT RP Dictated By: JULIOCESAR BLOOM MD RADIOLOGIST Reviewed and Electronically Signed by: JULIOCESAR BLOOM MD RADIOLOGIST Signed Date: 11/14/23 17:52 REASON FOR REFERRAL No Information MEDICATIONS Medication SIG (Take, Route, Frequency, Duration) Notes Start Date End Date Status Losartan Potassium 50 MG 1 tablet Orally Once a day for 90 day(s) HTN Active Carvedilol 3.125 MG 1 tablet with food Orally Twice a day for 90 day(s) HTN Active Zocor 40 MG 1 tablet in the evening Orally Once a day for 90 day(s) HYPERLIPIDEMIA 10/12/2016 Active HYDROcodone-Acetaminop hen 7.5-325 MG 1 tablet as needed Orally every 6 hrs for 30 day(s) PAIN 08/13/2022 Active Synthroid 50 MCG 1 tablet Orally Once a day for 90 day(s) HYPOTHRYOID 01/16/2014 Active Zaroxolyn 5 MG 1 tablet Orally once a day for 90 days CHF 10/06/2017 Not-Taking Chlorthalidone 25 MG 1 tablet in the morning with food Orally Once a day for 90 day(s) HTN Active metFORMIN HCl 500 mg 1 tablet with a meal Orally BID for 90 day(s) DM Active glipiZIDE 10 MG one tablet Orally daily for 90 days DM Active Magnesium 500 MG two tablets Orally TID for 90 day(s) SUPPLEMENT Not-Taking Lasix 40 mg 1 tablet Orally Once a day for 90 days CHF 07/13/2013 Active Januvia 100 MG 1 tablet Orally Once a day for 90 days 02/17/2022 Active Amitriptyline HCl 10 mg 2 tablets at bedtime Orally at bedtime for 90 days INSOMNIA 11/27/2016 Active Plavix 75 MG 1 tablet Orally Once a day for 90 days PREVENTIVE Active NIFEdipine ER 30 mg 1 tablet on an empty stomach Orally BID for 90 day(s) HTN Active SOCIAL HISTORY Tobacco Use: Social History Observation Description Date Details (start date - stop date) Never Smoker NA - NA Sex Assigned At : Social History Observation Description Sex Assigned At Unknown Sexual Hx: Question Answer Notes Had sex in the last 12 months (vaginal, oral, or anal)? No Have you ever had an STD? No Smoking History: Question Answer Notes Smoking Status: nonsmoker PROBLEMS Problem Type ICD Code Onset Dates Problem Status W/U Status Risk SNOMED Code Notes Problem Anemia (D64.9) Active confirmed Anemia (933907928) Problem Vitamin D deficiency (E55.9) Active confirmed 16913860 MEDS, LABS TO MONITOR Problem Anxiety (F41.9) Active confirmed 334824 02 Problem Hypomagnesemia (E83.42) Active confirmed Hypomagnesemia (152961167) LABS Problem Multiple joint pain (M25.50) Active confirmed 36999740 MEDS Problem Post-menopausal (Z78.0) Active confirmed 97307438 Problem Morbid obesity (E66.01) Active confirmed 036592005 MONITORING Problem Congestive heart failure (I50.9) Active confirmed 58062277 MEDS, SPECIALIST Problem GERD without esophagitis (K21.9) Active confirmed 359779246 MEDS, SPECIALIST Problem Hypothyroidism (acquired) (E03.9) Active confirmed Problem Other chronic pain (G89.29) Active confirmed 60608004 Problem BMI 39.0-39.9,adult (Z68.39) Active confirmed 679822732 Problem Type 2 diabetes mellitus with diabetic chronic kidney disease (E11.22) Active confirmed 79256173 MEDS Problem Peripheral vascular disease, unspecified (I73.9) Active confirmed Peripheral vascular disease (723521003) MEDS, SPECIALIST Problem Mixed hyperlipidemia (E78.2) Active confirmed 920738714 MEDS, LABS TO MONITOR Problem Primary insomnia (F51.01) Active confirmed 3077882 MEDS Problem Hypertensive heart and chronic kidney disease with heart failure and stage 1 through stage 4 chronic kidney disease, or unspecified chronic kidney disease (I13.0) Active confirmed 25096391 MEDS Problem Coronary artery disease involving [place] coronary artery of [place] heart, angina presence unspecified (I25.10) Active confirmed 506206214 MEDS Problem Anxiety disorder, unspecified type (F41.9) Active confirmed 164250741 Problem Type 2 diabetes mellitus with other circulatory complication, without long-term current use of insulin (E11.59) Active confirmed 06987878 DOC ANTONIO BS TO MONITOR Problem History of back surgery (Z98.890) Active confirmed 558716092 SPECIALIST Problem Type 2 diabetes mellitus with hyperglycemia, without long-term current use of insulin (E11.65) Active confirmed 15334692 Problem Acute idiopathic gout involving toe of right foot (M10.071) Active confirmed 05710010 Problem Hx of ovarian cancer (Z85.43) Active confirmed History of malignant neoplasm of ovary (868446692) SPECIALIST Problem History of stroke with residual effects (I69.30) Active confirmed 087297134 MEDS Problem Stage 3a chronic kidney disease (N18.31) Active confirmed 414118542 MONITORING PLAN OF TREATMENT No Information Insurance Providers Payer Name Payer Address Payer Phone Subscriber Number Group Number Insured Name Patient Relationship to Insured Coverage Start Date Coverage End [place] [address] [place] [address] [id number] Radha Kemp Self - patient is the insured [facility] [address] [address] [place] [address] [id number] Radha Kemp Self - patient is the insured MEDICATIONS ADMINISTERED Medication Instructions Date of Administration Dosage Notes Depomedrol 40mg (methylpredn isolone acetate) 02/25/2009 Bicillin 100,000 UNITS 02/25/2009 Depomedrol 40mg (methylpredn isolone acetate) 10/02/2009 Toradol per 15 mg (Ketorolac Tromethamine) 11/22/2009 Decadron 1mg 05/22/2011 10 Toradol per 15 mg (Ketorolac Tromethamine) 01/02/2012 30 mg Depomedrol, 80mg 01/02/2012 80 mg Rocephin 250mg 08/11/2012 1 g Rocephin 250mg 11/03/2012 1 g Decadron 1mg 11/03/2012 10 mg Depomedrol 40mg (methylpredn isolone acetate) 07/13/2013 80 Toradol per 15 mg (Ketorolac Tromethamine) 07/13/2013 15 Toradol per 15 mg (Ketorolac Tromethamine) 07/29/2013 30 mg Decadron 1mg 06/04/2014 10 mg Toradol per 15 mg (Ketorolac Tromethamine) 06/17/2014 30 mg Rocephin 250mg 03/10/2015 1 g Decadron 1mg 07/18/2016 10 mg Toradol per 15 mg (Ketorolac Tromethamine) 02/17/2019 60 mg Decadron 1mg 02/17/2019 10 mg MEDICAL (GENERAL) HISTORY Medical History History ICD Code Essential hypertension I10 Type 2 diabetes mellitus wit hout complication, unspecified jail insulin use status E11.9 Gout, unspecified cause, unspecified chr onicity, unspecified site M10.9 Congestive heart failure, un specified congestive heart failure chronicity, unspecified congestive heart failure type I50.9 Hyperlipidemia, unspecified hyperlipidem ia type E78.5 Sleep apnea, unspecified type G47.30 Gastro-esophageal reflux disease without esophagitis K21.9 Other specified hypothyroidism E03.8 Vitamin D deficiency E55.9 Peripheral vascular disease, unspecified I73.9 Renal failure N19 longterm (current) use of anticoagulant s Z79.01 intermediate manager (current) use of oral hypoglyc emic drugs Z79.84 intermediate manager (current) use of aspirin Z79.8 2 Surgical History Surgery Date(Month/Year) Colonoscopy+EGD (colon polyp) Dr Troy 03/18/2015 Thyroidectomy left 2009 thyroid nodule removed right heart catheterization Hysterectomy appendectomy C section gall bladder back surgery Hospitalization History Reason Date(Month/Year) pneumonia dehydration / renal failure 02/2012 [facility] Bladder infection 2010
--- OUTSIDE RECORDS SUMMARY | 2024-10-19 09:57 | XMS_ITS | Encounter Summary ---
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 Name Role Phone Mohit Fontanez [employer] Primary Care Provider + Reason for Visit * Reason Onset Date Comments Med Refill 08/21/2024 Encounter Details Date Type Department Care Team (Late st Contact Info) Description 08/21/2024 Refill [facility] [address] [facility] [address] [address] Mohit Fontanez APRN [address] [facility] [address] [place], [place] [address] Degenerative disc disease, lumbar Social History Tobacco Use Types Packs/Day Years Used Date Smoking Tobacco: Never Passive Smoke Exposure: Past Smokeless Tobacco: Never Alcohol Use Standard Drinks/Week Comments Never 0 (1 standard drink = 0.6 oz pur e alcohol) [facility] Utilities Answer Date Recorded In the past 12 months has [employer], [employer], oil, or water [employer] threatened to shut off services in your [...] or training? Not on file Preferred Language Swiss 08/11/2023 PHQ-2 Answer Date Recorded Patient Health Questionnaire-2 Score 0 03/03/2024 Comments No Sex and Gender Information Value Date Recorded Sex Assigned at Not on file Legal Sex Female 3:34 PM EDT Gender Identity Not on file Sexual Orientation Not on file documented as of this encounter Miscellaneous Notes * Telephone Encounter - Noelle Rhodes RegSched Rep - 08/21/2024 8:10 AM EDT Caller: Radha Kemp Eloy Relationship: Self Best call back number: [phone] Requested Prescriptions: Requested Prescriptions Pending Prescriptions Disp Refills HYDROcodone-acetaminophen (NORCO) 7.5-325 MG per tablet 90 tablet 0 Sig: Take 1 tablet by mouth Every 8 (Eight) Hours As Needed for Severe Pain. Pharmacy where request should be sent: [facility] [address] [place] [address] [facility] [phone] Last office visit with prescribing clinician: 03/03/2024 Last telemedicine visit with prescribing clinician: Visit date not found Next office visit with prescribing clinician: 08/30/2024 Additional details provided by patient: OUT OF MEDICATION Does the patient have less than a 3 day supply: [x] Yes [] No Would you like a call back once the refill request has been completed: [] Yes [x] No If the office needs to give you a call back, can they leave a voicemail: [] Yes [x] No Ave Renee 08/21/24 08:13 EDT documented in this encounter Plan of Treatment Upcoming Encounters Date Type Department Care Team (Late st Contact Info) Description 01/02/2025 2:00 PM EST Office Visit [facility] [address] [facility] [address] [place] [address] Mohit Fontanez APRN [address] [facility] [address] [place] [address] documented as of this encounter Visit Diagnoses Diagnosis Degenerative disc disease, lumbar documented in this encounter Care Teams Electric Power Machine Operator Relationship Specialty Start Date End Date Mohit Fontanez APRN [address] [facility] [address] [place] [address] PCP - General Family Medicine 11/27/22 documented as of this encounter
--- OUTSIDE RECORDS SUMMARY | 2024-10-19 09:57 | XMS_ITS | Clinical Summary ---
Author Organization [facility] Address [address] [place] [address] Care Team Providers Care Vein Access Technician Name Role Phone FontanezMohit jackson Rajni ROBERT Primary Care Provider + Allergies Active Allergy Reactions Criticality Noted Date Comments Sulfa Antibiotics Itching,Rash Low 11/27/2022 Diazepam Anaphylaxis,Swelling ,Angio edema High 11/27/2022 Throat swelling Medications glucose monitor monitoring kitIndications:Type 2 diabetes mellitus with diabetic polyneuropathy, without long-term current use of insulin Use 1 each As Needed (Check blood sugars 3 times daily as needed.). 1 each 3 Active glucose blood (Glucose Meter Test) test stripIndications:Ty pe 2 diabetes mellitus with diabetic polyneuropathy, without long-term current use of insulin Check blood sugars 3 times daily as needed. 100 each 5 3 Active Lancets miscIndications:Typ e 2 diabetes mellitus with diabetic polyneuropathy, without long-term current use of insulin Check blood sugars 3 times daily as needed. 100 each 5 3 Active hydrALAZINE (APRESOLINE) 25 MG tabletIndications:G eneralized anxiety disorder Take 1 tablet by mouth Every 8 (Eight) Hours As Needed (SBP >160/90 mm Hg). 180 tablet 4 4 Active furosemide (LASIX) 40 MG tablet Take 1 tablet by mouth As Needed (swelling). 90 tablet 4 4 Active glipizide (GLUCOTROL XL) 10 MG 24 hr tabletIndications:T ype 2 diabetes mellitus with diabetic polyneuropathy, without long-term current use of insulin Take 1 tablet by mouth 2 (Two) Times a Day. 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 90 tablet 4 4 Active amitriptyline (ELAVIL) 10 MG tabletIndications:P rimary insomnia Take 1 tablet by mouth Every Night. 90 tablet 4 4 Active carvedilol (COREG) 3.125 MG tabletIndications:E ssential hypertension,Chroni c heart failure with preserved ejection fraction Take 1 tablet by mouth Daily. 90 tablet 4 4 Active cetirizine (zyrTEC) 10 MG tabletIndications:S easonal allergies Take 1 tablet by mouth Daily. 90 tablet 4 4 Active clopidogrel (PLAVIX) 75 MG tabletIndications:H istory of CVA (cerebrovascular accident) Take 1 tablet by mouth Daily. 90 tablet 4 4 Active levothyroxine (SYNTHROID, LEVOTHROID) 50 MCG tabletIndications:A cquired hypothyroidism Take 1 tablet by mouth Every Morning. 90 tablet 4 4 Active losartan (COZAAR) 50 MG tabletIndications:E ssential hypertension Take 1 tablet by mouth every night at bedtime. 90 tablet 4 4 Active NIFEdipine CC (ADALAT CC) 30 MG 24 hr tabletIndications:E ssential hypertension Take 1 tablet by mouth Every 12 (Twelve) Hours. 180 tablet 4 4 Active simvastatin (ZOCOR) 40 MG tabletIndications:M ixed hyperlipidemia Take 1 tablet by mouth Every Night. 90 tablet 4 4 Active SITagliptin (JANUVIA) 100 MG tabletIndications:T ype 2 diabetes mellitus with diabetic polyneuropathy, without long-term current use of insulin Take 1 tablet by mouth Daily. 90 tablet 4 4 Active vitamin D (ERGOCALCIFEROL) 1.25 MG (91873 UT) capsule capsuleIndications: Vitamin D deficiency Take 1 capsule by mouth 1 (One) Time Per Week. 4 capsule 5 4 Active vitamin B-12 (CYANOCOBALAMIN) 1000 MCG tabletIndications:B 12 deficiency Take 1 tablet by mouth Daily. 90 tablet 4 4 Active HYDROcodone-acetami nophen (NORCO) 7.5-325 MG per tabletIndications:D egenerative disc disease, lumbar Take 1 tablet by mouth Every 8 (Eight) Hours As Needed for Severe Pain. 90 tablet 5 Active Active Problems Problem Noted Date Diagnosed Date Angina pectoris 03/10/2024 B12 deficiency 01/12/2024 Vitamin D deficiency 01/12/2024 Achalasia 08/10/2023 Acquired hypothyroidism 11/27/2022 Type 2 diabetes mellitus wit h diabetic polyneuropathy, without long-term current use of insulin 11/27/2022 Degenerative disc disease, lumbar 11/27/2022 Idiopathic chronic gout of multiple sites withou t tophus 11/27/2022 Essential hypertension 11/27/2022 Chronic heart failure with preserved ejection fr action 11/27/2022 Obstructive sleep apnea on CPAP 11/27/2022 Encounters Date Type Department Care Team Description 10/19/2024 Telephone [facility] [address] [place] [address] Mohit Fontanez, ROBERT [place]ORD 09/19/2024 Refill [facility] [address] [place] [address] Mohit Fontanez, ROBERT Degenerative disc disease, lumbar 09/01/2024 Results Follow-Up [facility] [address] [place] [address] Mohit Fontanez, ROBERT 08/30/2024 3:35 PM EDT Lab [facility] [address] [place] [address] Type 2 diabetes mellitus with diabetic polyneuropathy, without long-term current use of insulin; Medication management 08/30/2024 2:30 PM EDT Office Visit [facility] [address] [place] [address] Mohit Fontanez APRN Type 2 diabetes mellitus with diabetic polyneuropathy, without long-term current use of insulin (Primary Dx); Medication management; Degeneration of intervertebral disc of lumbar region with discogenic back pain and lower extremity pain; Belching; Acquired hypothyroidism; Obstructive sleep apnea on CPAP; Chronic heart failure with preserved ejection fraction; Stress at home 08/30/2024 Travel 08/21/2024 Refill [facility] [address] [place] [address] Mohit Fontanez APRN Degenerative disc disease, lumbar 07/21/2024 Refill [facility] [address] [place] [address] Mohit Fontanez APRN Degenerative disc disease, lumbar from Last 3 Months Family History Medical History Relation Name Comments Cancer Brother Diabetes Brother Arthritis Father defects Father Diabetes Father Heart attack Father COPD Maternal Aunt Heart attack Maternal Aunt Hypertension Maternal Aunt Migraines Maternal Aunt Thyroid disease Maternal Aunt Arthritis Maternal Grandfather Diabetes Maternal Grandfather Heart attack Maternal Grandfather Diabetes Maternal Grandmother Hypertension Maternal Grandmother COPD Maternal Uncle Kidney disease Maternal Uncle Thyroid disease Maternal Uncle Arthritis Mother Cancer Mother Diabetes Mother Hypertension Mother Kidney disease Mother Migraines Mother Thyroid disease Mother Kidney disease Paternal Aunt Diabetes Paternal Uncle Relation Name Status Comments Brother Alive Father Maternal Aunt Maternal Grandfather Maternal Grandmother Maternal Uncle Mother Paternal Aunt Paternal Uncle Social History Tobacco Use Types Packs/Day Years Used Date Smoking Tobacco: Never Passive Smoke Exposure: Past Smokeless Tobacco: Never Tobacco Cessation:Counseling Given: Not Answered Alcohol Use Standard Drinks/Week Comments Never 0 (1 standard drink = 0.6 oz pur e alcohol) [facility] Utilities Answer Date Recorded In the past 12 months has [employer], [employer], [employer], or water [facility] threatened to shut off services in your [...] or training? Not on file Preferred Language Lao 08/11/2023 PHQ-2 Answer Date Recorded Patient Health Questionnaire-2 Score 0 03/03/2024 Comments No Sex and Gender Information Value Date Recorded Sex Assigned at Not on file Legal Sex Female 3:34 PM EDT Gender Identity Not on file Sexual Orientation Not on file Last Filed Vital Signs Vital Sign Reading Time Taken Comments Blood Pressure 124/70 08/30/2024 2:45 PM EDT Pulse 78 08/30/2024 2:45 PM EDT Temperature 36.2 C (97.2 F) 08/30/2024 2:45 PM EDT Respiratory Rate 16 09/27/2023 2:14 PM EDT Oxygen Saturation 99% 08/30/2024 2:45 PM EDT Inhaled Oxygen Concentration - - Weight 93.6 kg (206 lb 6.4 oz) 08/30/2024 2:45 P M EDT Height 157.5 cm (5' 2.01 ) 03/15/2024 2:59 PM ES T Body Mass Index 37.74 03/15/2024 2:59 PM EST Plan of Treatment Upcoming Encounters Date Type Department Care Team (Late st Contact Info) Description 01/02/2025 2:00 PM EST Office Visit [facility] [address] [place] [address] Mohit Fontanez APRN [address] [facility] [address] [place] [address] Health Maintenance Due Date Last Done Comments DXA SCAN 1945 DIABETIC FOOT EXAM 08/01/1957 ZOSTER VACCINE (1 of 2) 08/01/1997 ANNUAL WELLNESS VISIT 11/27/2022 DIABETIC EYE EXAM 04/22/2024 04/23/2023 (Patient-Reported (Performed Externally)) INFLUENZA VACCINE 11/22/2024 Pneumococcal Vaccine 50+ (1 of 2 - PCV) 01/03/2025 Postponed from 08/01/1966 (Patient Refused) RSV Vaccine - Adults (1 - 1-dose 75+ series) 01/03/2025 Postponed from 08/01/2022 (Patient Refused) TDAP/TD VACCINES (1 - Tdap) 01/03/2025 Postponed from 08/01/1966 (Patient Refused) LIPID PANEL 01/10/2025 01/11/2024, 10/03/2023 HEMOGLOBIN A1C 03/02/2025 08/30/2024, 12/23, 05/31/2023, Additional history exists URINE MICROALBUMIN-CREATININE RATIO (uACR) 08/30/2025 08/30/2024 HEPATITIS C SCREENING Completed 06/16/2024, 10/25/2 023 COVID-19 Vaccine Discontinued Medical Devices Implanted Type [employer] Device Identifier Shelf Expiration Date Model / Serial / Lot Clipapplr M/ Endo Ligaclip Rot 10mm / - [id number] Implanted:Qty : 1 on 08/10/2023 by Trev Conner MD at [facility] Implant N/A: Esophagus [employer] DIV [employer] J AND J [id number] / / Hemost Abs Surgicel Orig 4x8in Str - [id number] Implanted:Qty : 1 on 08/10/2023 by Trev Conner MD at [facility] Implant N/A: Esophagus [employer] J AND J 10/23/2027 [id number] / / [id number] Procedures Procedure Name Priority Date/Time Associated Diagnosis Comments CBC AND DIFFERENTIAL Routine 08/30/2024 3:33 PM EDT Type 2 diabetes mellitus with diabetic polyneuropathy, without long-term current use of insulin FENTANYL, URINE Routine 08/30/2024 3:33 PM EDT Medication management CBC WITH AUTO DIFFERENTIAL Routine 08/30/2024 3:33 PM EDT Type 2 diabetes mellitus with diabetic polyneuropathy, without long-term current use of insulin URINE DRUG SCREEN Routine 08/30/2024 3:3 3 PM EDT Medication management MICROALBUMIN / CREATININE URINE RATIO Routine 08/30/2024 3:33 PM EDT Type 2 diabetes mellitus with diabetic polyneuropathy, without long-term current use of insulin TSH RFX ON ABNORMAL TO FREE T4 Routine 08/30/2024 3:33 PM EDT Acquired hypothyroidism COMPREHENSIVE METABOLIC PANEL Routine 08/30/2024 3:33 PM EDT Type 2 diabetes mellitus with diabetic polyneuropathy, without long-term current use of insulin POCT GLYCOSYLATED HEMOGLOBIN (HGB A1C) Routine 08/30/2024 3:17 PM EDT Type 2 diabetes mellitus with diabetic polyneuropathy, without long-term current use of insulin LIPID PANEL Routine 01/11/2024 11:02 AM EST Mixed hyperlipidemia from Last 3 Months or Most Recently Relevant to Health Maintenance Results * TSH Rfx On Abnormal To Free T4 (08/30/2024 3:33 PM EDT) Pathologist [facility] TSH 0.883 0.270 - 4.200 uIU/mL 08/31/2024 12:04 AM EDT [facility] Blood Structure of right upper limb / Unknown Venipuncture / Unknown 08/30/2024 3:33 PM EDT 08/30/2024 3:33 PM EDT Mohit Fontanez APRN LAB BLOOD ORDERABLES Fin al Result [facility]
[address] [place] [address], * (ABNORMAL) CBC Auto Differential (08/30/2024 3:33 PM EDT) Pathologist [facility] WBC 6.25 3.40 - 10.80 10*3/mm3 08/30/2024 10:58 PM EDT [facility] RBC 4.42 3.77 - 5.28 10*6/mm3 08/30/2024 10:58 PM EDT [facility] Hemoglobin 12.8 12.0 - 15.9 g/dL 08/30/2024 10:58 PM EDT [facility] Hematocrit 39.0 34.0 - 46.6 % 08/30/2024 10:58 PM EDT [facility] MCV 88.2 79.0 - 97.0 fL 08/30/2024 10:58 PM EDT [facility] MCH 29.0 26.6 - 33.0 pg 08/30/2024 10:58 PM EDT [facility] MCHC 32.8 31.5 - 35.7 g/dL 08/30/2024 10:58 PM EDT [facility] RDW 13.0 12.3 - 15.4 % 08/30/2024 10:58 PM [facility] RDW-SD 41.7 37.0 - 54.0 fl 08/30/2024 10:58 PM [facility] MPV 12.4(H) 6.0 - 12.0 fL 08/30/2024 10:58 PM [facility] Platelets 135(L) 140 - 450 10*3/mm3 08/30/2024 10:58 PM T [facility] Neutrophil % 61.5 42.7 - 76.0 % 08/30/2024 10:58 PM [facility] Lymphocyte % 27.8 19.6 - 45.3 % 08/30/2024 10:58 PM [facility] Monocyte % 8.3 5.0 - 12.0 % 08/30/2024 10:58 PM [facility] Eosinophil % 1.3 0.3 - 6.2 % 08/30/2024 10:58 PM [facility] Basophil % 0.8 0.0 - 1.5 % 08/30/2024 10:58 PM [facility] Immature Grans % 0.3 0.0 - 0.5 % 08/30/2024 10:58 PM [facility] Neutrophils, Absolute 3.84 1.70 - 7.00 10*3/mm3 08/30/2024 10:58 PM [facility] Lymphocytes, Absolute 1.74 0.70 - 3.10 10*3/mm3 08/30/2024 10:58 PM [facility] Monocytes, Absolute 0.52 0.10 - 0.90 10*3/mm3 08/30/2024 10:58 PM [facility] Eosinophils, Absolute 0.08 0.00 - 0.40 10*3/mm3 08/30/2024 10:58 PM [facility] Basophils, Absolute 0.05 0.00 - 0.20 10*3/mm3 08/30/2024 10:58 PM EDT [facility] Immature Grans, Absolute 0.02 0.00 - 0.05 10*3/mm3 08/30/2024 10:58 PM EDT [facility] nRBC 0.0 0.0 - 0.2 /100 WBC 08/30/2024 10:58 PM EDT [facility] Blood Structure of right upper limb / Unknown Venipuncture / Unknown 08/30/2024 3:33 PM EDT 08/30/2024 3:33 PM EDT Mohit Fontanez APRN LAB BLOOD ORDERABLES Fin al Result [facility]
[address] [place] [address], * Microalbumin / Creatinine Urine Ratio - Urine, Clean Catch (08/30/2024 3:33 PM EDT) Microalbumin/C reatinine Ratio 08/30/2024 11:50 PM EDT [facility] Comment:Unable to calculate Creatinine, Urine 106.2 mg/dL 08/30/2024 11:50 PM EDT [facility] Microalbumin, Urine <1.2 mg/dL 08/30/2024 11:50 PM EDT [facility] Urine Urine specimen obtained by clean catch procedure / Unknown Collection / Unknown 08/30/2024 3:33 PM EDT 08/30/2024 3:33 PM EDT Mohit Fontanez RABBLER URINE ORDERABLES Final R esult [facility]
[address] [place] [address], * Urine Drug Screen - Urine, Clean [...] 3:33 PM EDT 08/30/2024 3:33 PM EDT [facility] - 08/30/2024 7:49 PM EDT Cutoff [...] test, particularly when unconfirmed results are used. us Mohit Fontanez APRN URINE ORDERABLES Final R esult Performing Organization Address [facility] Co de Phone Number [facility]
[address] [place] [address], [place] [phone] * Fentanyl, Urine - Urine, Clean Catch (08/30/2024 3:33 PM EDT) Fentanyl, Urine Negative Negative 08/30/2024 8:00 PM EDT [facility] Urine Urine specimen obtained by clean catch procedure / Unknown Collection / Unknown 08/30/2024 3:33 PM EDT 08/30/2024 3:33 PM EDT [facility] - 08/30/2024 8:00 PM EDT Negative [...] Fontanez APRN URINE ORDERABLES Final R esult Performing Organization Address [facility] de Phone Number [facility]
[address] [place] [address], [place] [phone] * Comprehensive Metabolic Panel (08/30/2024 3:33 PM EDT) Glucose 72 65 - 99 mg/dL 08/31/2024 12:00 AM EDT [facility] BUN 10.0 8.0 - 23.0 mg/dL 08/31/2024 12:00 AM EDT [facility] Creatinine 0.84 0.57 - 1.00 mg/dL 08/31/2024 12:00 AM EDT [facility] Sodium 141 136 - 145 mmol/L 08/31/2024 12:00 AM [facility] Potassium 3.7 3.5 - 5.2 mmol/L 08/31/2024 12:00 AM [facility] Chloride 106 98 - 107 mmol/L 08/31/2024 12:00 AM [facility] CO2 23.0 22.0 - 29.0 mmol/L 08/31/2024 12:00 AM [facility] Calcium 9.2 8.6 - 10.5 mg/dL 08/31/2024 12:00 AM [facility] Total Protein 7.7 6.0 - 8.5 g/dL 08/31/2024 12:00 AM [facility] Albumin 4.0 3.5 - 5.2 g/dL 08/31/2024 12:00 AM [facility] ALT (SGPT) 13 1 - 33 U/L 08/31/2024 12:00 AM [facility] AST (SGOT) 28 1 - 32 U/L 08/31/2024 12:00 AM [facility] Alkaline Phosphatase 76 39 - 117 U/L 08/31/2024 12:00 AM [facility] Total Bilirubin 0.3 0.0 - 1.2 mg/dL 08/31/2024 12:00 AM [facility] Globulin 3.7 gm/dL 08/31/2024 12:00 AM [facility] A/G Ratio 1.1 g/dL 08/31/2024 12:00 AM [facility] BUN/Creatinine Ratio 11.9 7.0 - 25.0 08/31/2024 12:00 AM [facility] Anion Gap 12.0 5.0 - 15.0 mmol/L 08/31/2024 12:00 AM [facility] eGFR 71.7 >60.0 mL/min/1.7 3 08/31/2024 12:00 AM [facility] Blood Structure of right upper limb / Unknown Venipuncture / Unknown 08/30/2024 3:33 PM EDT 08/30/2024 3:33 PM EDT Narrative [facility] - 08/31/2024 12:00 AM EDT GFR [...] APRN LAB BLOOD ORDERABLES Fin al Result Performing Organization Address City/[facility]/ZIP Co de Phone Number [facility]
[address] [place] [address], [place] [phone] * POC Glycosylated Hemoglobin (Hb A1C) (08/30/2024 3:17 PM EDT) [facility] Hemoglobin A1C 5.1 4.5 - 5.7 % [facility] Lot Number [id number] [facility] Expiration Date 04/19/2026 [facility] Blood 08/30/2024 3:17 PM EDT Mohit Fontanez APRN POINT OF CARE TEST ORDER TATI Final Result [facility]
[address] [place] [address], [place] [phone] * (ABNORMAL) Lipid Panel (01/11/2024 11:02 AM EST) Total Cholesterol 116 0 - 200 mg/dL 01/12/2024 12:12 AM EST [facility] Triglycerides 70 0 - 150 mg/dL 01/12/2024 12:12 AM EST [facility] HDL Cholesterol 36(L) 40 - 60 mg/dL 01/12/2024 12:12 AM EST [facility] LDL Cholesterol 65 0 - 100 mg/dL 01/12/2024 12:12 AM [facility] VLDL Cholesterol 15 5 - 40 mg/dL 01/12/2024 12:12 AM [facility] LDL/HDL Ratio 1.83 01/12/2024 12:12 AM [facility] Blood Structure of right upper limb / Unknown Venipuncture / Unknown 01/11/2024 11:02 AM EST 01/11/2024 11:02 AM EST Narrative [facility] - 01/12/2024 12:12 AM EST Cholesterol Reference Ranges (U.S. Department of Health and Human Services ATP III Classifications) Desirable <200 mg/dL Borderline High 200-239 mg/dL High Risk >240 mg/dL Triglyceride Reference Ranges (U.S. Department of Health and Human Services ATP III Classifications) Normal <150 mg/dL Borderline High 150-199 mg/dL High 200-499 mg/dL Very High >500 mg/dL HDL Reference Ranges (U.S. Department of Health and Human Services ATP III Classifications) Low <40 mg/dl (major risk factor for CHD) High >60 mg/dl ('negative' risk factor for CHD) LDL Reference Ranges (U.S. Department of Health and Human Services ATP III Classifications) Optimal <100 mg/dL Near Optimal 100-129 mg/dL Borderline High 130-159 mg/dL High 160-189 mg/dL Very High >189 mg/dL Mohit Fontanez APRN LAB BLOOD ORDERABLES Fin al Result [facility]
[address] [place] [address], from Last 3 Months or Most Recently Relevant to Health Maintenance Insurance [facility] [place] [address] [employer] MED[employer]ARE ADVANTAGE PPO Advance Directives * CPR (Attempt to Resuscitate) (Latest Code Status on File) Date Activated Date Inactivated Comments 08/10/2023 2:23 PM 08/12/2023 12:54 PM Question Answer Comments Code Status (Patient has no pulse and is not breathing): CPR (Attempt to Resuscitate) Medical Interventions (Patie nt has pulse or is breathing): Full Support Level Of Support Discussed With: Patient Care Teams Vein Access Technician Relationship Specialty Start Date End Date Mohit Fontanez APRN [address] [place] [address] [address] [place] [phone] PCP - General Family Medicine 11/27/22
--- NOTE | 2024-10-19 09:58 | ECG_ITS ---
APPROVED REPORT Exam: Resting ECG HR:89 bpm ECG Measurements Heart Rate 89 AXES AZ 179 P 99 QRSd 77 QRS 79 QT 362 T 73 QTc 409 Conclusion Normal sinus Normal axis Normal intervals NO STEMI Electronically signed by : Darryl Scott, 10/19/2024 16:59:50
--- OUTSIDE RECORDS SUMMARY | 2024-10-19 09:58 | XMS_ITS | Clinical Summary ---
Author Organization Healthcare Address [address] [place] [address] Care Team Providers Care Landscape Management Technician Name Role Phone Wei Cabrera Primary Care Provider Allergies Active Allergy Reactions Criticality Noted Date Comments Diazepam Itching,Swelling,Hiv es,Unknown - Patient states they do not know rxn details High 02/12/2012 Elemental Sulfur Rash Low 12/05/2015 Sulfa Drugs Hives,Itching,Rash,U nknown - Patient states they do not know rxn details Medium 01/01/2014 Medications magnesium oxide (Mag-Ox) 400 mg tablet Take 1 tablet (400 mg) by mouth 2 (two) times a day. 1500mg twice day Active allopurinol (Zyloprim) 100 MG tablet Take 1 tablet (100 mg) by mouth 1 (one) time each day. Active simvastatin (Zocor) 40 MG tablet Take 1 tablet (40 mg) by mouth every night. Active levothyroxine (Synthroid, Levoxyl) 50 MCG tablet Take 1 tablet (50 mcg) by mouth 1 (one) time each day before breakfast. Active clopidogrel (Plavix) 75 MG tablet Take 1 tablet (75 mg) by mouth 1 (one) time each day. Active metFORMIN (Glucophage) 500 MG tablet Take 1 tablet (500 mg) by mouth 2 (two) times a day with meals. Active escitalopram (Lexapro) 10 MG tablet Take 1 tablet (10 mg) by mouth 1 (one) time each day. Active SITagliptin (Januvia) 100 MG tablet Take 1 tablet (100 mg) by mouth 1 (one) time each day. Active amitriptyline (Elavil) 10 MG tablet Take 1 tablet (10 mg) by mouth every night. 30 tablet 12/21/2022 Active Active Problems Problem Noted Date Diagnosed Date Orthostatic hypotension 12/21/2022 Chronic heart failure with preserved ejection fr action 11/27/2022 12/17/2022 Obesity (BMI 35.0-39.9 without comorbidity) 01/22 Shortness of breath 12/09/2020 Acquired hypothyroidism 12/27/2017 12/18/19 CAD (coronary artery disease) 12/27/2017 Hyperlipidemia 05/15/2013 12/17/2022 Resolved Problems Problem Noted Date Diagnosed Date Resolved Date NATACHA (acute kidney injury) 12/17/2022 Hypomagnesemia 12/17/2022 12/21/2022 Acute kidney injury 12/17/2022 12/22/19 23 Family History Medical History Relation Name Comments Cardiac disorder Father Hypertension Father Cardiac disorder Father's Sister 1 Hypertension Father's Sister 2 Hypertension Maternal Grandfather Cardiac disorder Maternal Grandmother Hypertension Maternal Grandmother Diabetes Mother Hypertension Mother Diabetes Mother's Brother 1 Hypertension Mother's Brother 2 Diabetes Mother's Sister 1 Hypertension Mother's Sister 2 Cardiac disorder Paternal Grandmother Relation Name Status Comments Father Father's Sister 1 Father's Sister 2 Maternal Grandfather Maternal Grandmother Mother Mother's Brother 1 Mother's Brother 2 Mother's Sister 1 Mother's Sister 2 Paternal Grandmother Social History Tobacco Use Types Packs/Day Years Used Date Smoking Tobacco: Never Smokeless Tobacco: Never Alcohol Use Standard Drinks/Week Comments No 0 (1 standard drink = 0.6 oz pur e alcohol) Humiliation, Afraid, Rape, and Kick questionnair e Answer Date Recorded Within the last year, have y ou been afraid of your partner or ex-partner? No 12/17/2022 Within the last year, have y ou been humiliated or emotionally abused in other ways by your partner or ex-partner? No Within the last year, have y ou been kicked, hit, slapped, or otherwise physically hurt by your partner or ex-partner? No 12/17/2022 Within the last year, have y ou been raped or forced to have any kind of sexual activity by your partner or ex-partner? No 12/17/2022 PHQ-2 Answer Date Recorded Patient Health Questionnaire-2 Score 0 08/24/2022 Hunger Vital Sign Answer Date Recorded Within the past 12 months, y ou worried that your food would run out before you got the money to buy more. Never true 12/18/19 Within the past 12 months, t he food you bought just didn't last and you didn't have money to get more. Never true 12/17/2022 PRAPARE - Transportation Answer Date Re corded In the past 12 months, has l ack of transportation kept you from medical appointments or from getting medications? No 11/23 In the past 12 months, has l ack of transportation kept you from meetings, work, or from getting things needed for daily living? No 12/17/2022 Housing Stability Vital Sign Answer Carlos e Recorded In the last 12 months, was t here a time when you were not able to pay the mortgage or rent on time? No 12/17/2022 Number of Places Lived in the Last Year Not on f ile 12/17/2022 In the last 12 months, was t here a time when you did not have a steady place to sleep or slept in a care home (including now)? No 12/17/2022 Utilities Answer Date Recorded In the past 12 months has th e [employer], gas, oil, or water company threatened to shut off services in your home? No 12/17/2022 PHQ-2A Answer Date Recorded Patient Health Questionnaire-2 Score 0 08/24/2022 Comments No Sex and Gender Information Value Date Recorded Sex Assigned at Not on file Legal Sex Female 6:49 PM EDT Gender Identity Not on file Sexual Orientation Not on file Last Filed Vital Signs Vital Sign Reading Time Taken Comments Blood Pressure 138/81 12/21/2022 11:09 AM EDT Pulse 82 12/21/2022 11:09 AM EDT Temperature 36.7 C (98 F) 12/21/2022 11:09 AM EDT Respiratory Rate 16 12/21/2022 4:00 AM EDT Oxygen Saturation 93% 12/21/2022 11: 09 AM EDT Inhaled Oxygen Concentration - - Weight 96.6 kg (212 lb 15.4 oz) 023 11:00 AM EDT Height 160 cm (5' 2.99 ) 12/17/2022 11: 00 AM EDT Body Mass Index 37.73 12/17/2022 11:00 AM EDT Plan of Treatment Health Maintenance Due Date Last Done Comments [facility]-Bone Density Scan 1945 [facility]-Medicare Annual Wellness (AWV) 1945 [facility]-/Child/Adol SDOH Screenings 1945 [id number] Vaccine (#1) 08/01/1952 [facility]- SDOH Screenings 08/01/1965 [facility]-Adult SDOH Screenings 08/01/1965 [facility]-DTaP,Tdap,and Td Vaccines (1 - Tdap) 08/01/1966 [facility]-Pneumococcal Vaccine: 50+ Years (1 of 2 - PCV) 08/01/1966 [facility]-Zoster Vaccines (1 of 2) 08/01/1997 [facility]-RSV Vaccine: 60+ Years or (1 - 1-dose 75+ series) 08/01/2022 [facility]-Depression Screening 08/25/2023 08/24/2022 [facility]-Influenza Vaccine (#1) 2024 09/19/2014 [facility]-Obesity Intervention Completed 023, 02/02/2022 [facility]-Diabetes: Hemoglobin A1C Discontinued , 02/09/2022, 01/03/2018 [facility]-Hepatitis C Screening Completed 12/16/2022 HPV Vaccines Aged Out No longer eligi ble based on patient's age to complete this topic [facility]-HIB Vaccines Aged Out No longer e ligible based on patient's age to complete this topic [facility]-Hepatitis A Vaccines Aged Out No longer eligible based on patient's age to complete this topic [facility]-IPV Vaccines Aged Out No longer e ligible based on patient's age to complete this topic [facility]-Rotavirus Vaccines Aged Out No lo nger eligible based on patient's age to complete this topic Procedures Procedure Name Priority Date/Time Associated Diagnosis Comments HEPATITIS C ANTIBODY - ED W/REFLEX TO HCV QUANT PCR STAT 12/16/2022 9:56 PM EDT HEMOGLOBIN A1C Add-On 12/16/2022 9:56 PM EDT from Last 3 Months or Most Recently Relevant to Health Maintenance Results * Hepatitis C Antibody - ED (12/16/2022 9:56 PM EDT) Hepatitis C Antibody Negative Negative 12/16/2022 10:42 PM EDT [facility] Blood Venous blood specimen / Unknown Venipuncture / Unknown 12/16/2022 9:56 PM EDT 12/16/2022 10:00 PM EDT us Michaela Marsh APRN LAB BLOOD ORDERABLES Yu l Result Performing Organization Address City/[facility]/ZIP Co de Phone Number [facility] [address] [place] [address] * (ABNORMAL) Hemoglobin A1c (12/16/2022 9:56 PM EDT) Hemoglobin A1c 6.4(H) <5.7 % 12/17/2022 8:23 AM EDT [facility] Blood Venous blood specimen / Unknown Venipuncture / Unknown 12/16/2022 9:56 PM EDT 12/16/2022 10:00 PM EDT Narrative [facility] - 12/17/2022 8:23 AM EDT HA1C Interpretive Data: Diagnosis of Diabetes: Diabetic > or = 6.5% Pre-diabetic 5.7 to 6.4% Non-diabetic < or = 5.6% Glycemic Targets for Type I and Type II Diabetics: Non- Adults <7.0% Adults <6.0% Children and Adolescents <7.5% Source: [place] [employer]. Standards of medical care in diabetes,2017. Diabetes Care.2017:40 (suppl 1):S1-S135. HbA1c assay performed by an ion-exchange chromatography method that is certified traceable to the DCCT. us Jose Mariscal MD LAB BLOOD ORDERABLES Final Re sult [facility] [address] [place] [address] from Last 3 Months or Most Recently Relevant to Health Maintenance Insurance [facility] MEDICARE Advance Directives * Full Code (Latest Code Status on File) Date Activated Date Inactivated Comments 12/17/2022 2:15 AM 12/21/2022 5:51 PM Question Answer Comments Patient has decision-making capacity? Yes Care Teams Landscape Management Technician Relationship Specialty Start Date End Date Wei Cabrera DO [address] [place] [id number] PCP - General 07/05/20
--- OUTSIDE RECORDS SUMMARY | 2024-10-19 09:58 | XMS_ITS | Encounter Summary ---
Author Organization [facility] Address [address] [place] [address] Care Team Providers Care Finance Clerk Name Role Phone FontanezMohit jackson ROBERT Primary Care Provider + Encounter Details Date Type Department Care Team (Latest Contact Info) Description 08/30/2024 Travel Social History Tobacco Use Types Packs/Day Years Used Date Smoking Tobacco: Never Passive Smoke Exposure: Past Smokeless Tobacco: Never Alcohol Use Standard Drinks/Week Comments Never 0 (1 standard drink = 0.6 oz pur e alcohol) [facility] Utilities Answer Date Recorded In the past 12 months has [employer] electric, gas, oil, or water company threatened to [...] or training? Not on file Preferred Language [place] 08/11/2023 PHQ-2 Answer Date Recorded Patient Health [...] Description 01/02/2025 2:00 PM EST Office Visit [facility] [address] [place] [phone] Mohit oFntanez APRN [address] [place] [address] documented as of this encounter Visit Diagnoses Not on filedocumented in this encounter Care Teams Finance Clerk Relationship Specialty Start Date End Date Mohit Fontanez APRN [address] [place] [address] PCP - General Family Medicine 11/27/22 documented as of this encounter
[2024-10-19 10:11] LABS: Hematocrit 36.0 % (37.0-47.0); Hemoglobin 12.1 g/dL (12.2-16.2); Immature Granulocytes % 0.4 %; Mean Corpuscular HGB Conc 33.6 g/dL (31.8-35.4); Mean Corpuscular Hemoglobin 29.0 pg (27.0-31.2); Mean Corpuscular Volume 86.3 fl (81-99); Nucleated Red Blood Cells % 0 %; Platelet Count 107 K/mm3 (142-424); Red Blood Count 4.17 M/mm3 (4.20-5.40); Red Cell Distribution Width-SD 41.6 fL; White Blood Count 5.4 K/mm3 (4.8-10.8)
[2024-10-19 10:19] LABS: Albumin Level 4.0 g/dl (3.5-5.0); Chloride 109 mmol/L (98-107); Potassium 3.7 mmoL/L (3.5-5.1); Sodium 140 mmol/L (136-145)
[2024-10-19 10:22] LABS: Alanine Aminotransferase 24 U/L (12-78); Albumin/Globulin Ratio 1.1 (1.1-1.8); Alkaline Phosphatase 78 U/L (38-126); Anion Gap 8.7 mEq/L (5-15); Aspartate Amino Transferase 40 U/L (14-36); Bilirubin,Total 0.4 mg/dl (0.2-1.3); Blood Urea Nitrogen 12 mg/dl (7-17); Carbon Dioxide 26 mmol/L (22.0-30.0); Creatinine Clearance Estimated 65 mL/min (50-200); Creatinine,Serum 0.70 mg/dl (0.52-1.04); Estimated Glomerular Filt Rate 81 ml/min (>60); GFR (African American) 98 ML/MIN (>60); Globulin 3.7 g/dL (1.3-3.2); Total Protein,Serum 7.7 g/dl (6.3-8.2)
[2024-10-19 10:23] LABS: Calcium 8.8 mg/dl (8.4-10.2); Glucose 131 mg/dl (74-100)
[2024-10-19 10:32] LABS: NT Pro Brain Natriuretic Pep. 742 pg/mL (0-450)
[2024-10-19 10:35] LABS: Troponin I < 0.01 ng/ml (0.00-0.034)
== END 2024-10-19 12:22 | disposition home or self-care (01) ==
PROVIDERS: Emergency Provider Student in an Organized Health Care Education/Training Program; PCP Nurse Practitioner Family
DX: J98.01 Acute bronchospasm (principal); B34.8 Other viral infections of unspecified site
CPT/HCPCS: 71046; 80053; 83880; 84484; 85025; 87631; 93005; 99284